=== PATIENT | female | born 1970 | race Two or more races ===

== ENCOUNTER 2020-01-16 05:19 | Emergency (ER) | payer OTHER ==
--- NOTE | 2020-01-16 06:15 | CR ---
Indication: Cough Technique: Chest 2 views Comparison: None Findings: Cardiovascular and mediastinum: Heart size and vasculature are normal in caliber and appearance. Lungs and pleural spaces: Ill-defined infiltrate is present in the right lower lobe. Remainder of the lungs and pleural spaces are clear. Bones and soft tissues: No significant findings. Impression: Right lower lobe pneumonia. Dictated by Prudencio Lester MD @ Jan 16 2020 6:12AM Signed by Dr. Prudencio Lester @ Jan 16 2020 6:14AM
[2020-01-16] MEDS ORDERED: Azithromycin 250 MG Tab PO ONE (06:25)
[2020-01-16] MEDS ORDERED: Ibuprofen 600 MG Tab PO ONE (06:25)
--- NOTE | 2020-01-16 06:27 | EDM.PDOC ---
ED HPI GENERAL MEDICAL PROBLEM - General Chief Complaint: Respiratory Problem Stated Complaint: COUGH, CONGESTION Time Seen by Provider: 01/16/20 05:32 - History of Present Illness INITIAL COMMENTS - FREE TEXT/NARRATIVE: HISTORY AND PHYSICAL: History of present illness: This is a 49-year-old female who presents ER today secondary to cough and congestion x1 week. Patient reports she presents the ER today secondary to identifying small flecks of blood in her sputum. Patient complains of tactile fevers at home, no shakes, chills, nausea, vomiting, diarrhea, dysuria, frequency, urgency. Patient does complain of mild sore throat. Patient denies any ear pain. Patient denies any abdominal discomfort. Patient has a chest pain or shortness of breath. Patient denies any history of hypertension, diabetes, liver, lung, kidney problems. Patient denies any chest or abdominal surgeries. Patient reports that she has been diagnosed with breast cancer and they did a lumpectomy. Patient has any tobacco alcohol or drugs. Patient has no known drug allergies. Patient has no known coronavirus exposures. Patient currently works from home. Review of systems: As per history of present illness and below otherwise all systems reviewed and negative. Past medical history: As per history of present illness and as reviewed below otherwise noncontributory. Surgical history: As per history of present illness and as reviewed below otherwise noncontributory. Social history: No reported history of drug or alcohol abuse. Family history: As per history of present illness and as reviewed below otherwise noncontributory. Physical exam: Pulse ox 96% on room air. Constitutional: Patient is oriented to person, place, and time. Appears well- developed and well-nourished. No distress. HEENT: Moist mucous membranes Head: Normocephalic and atraumatic Eyes: Right eye exhibits no discharge. Left eye exhibits no discharge. No scleral icterus Neck: Normal range of motion. No tracheal deviation present. Cardiovascular: Normal rate and regular rhythm. No murmurs gallops or rubs. Pulmonary: Effort normal, no respiratory distress. Clear without any wheezing rales or rhonchi. Abdominal: No distention Musculoskeletal: Normal range of motion Neurologic: Alert and oriented to person, place and time. Skin: [place], warm and dry. Psychiatric: Normal mood and affect. Behavior is normal. Judgment and thought content normal. Nursing note and vital signs have been reviewed Diagnostics: Chest Xray: Normal cardiac silhouette Right lower lobe infiltrate/pneumonia No PTX No evidence of acute bony fracture. As interpreted by ER MD: Jeet Cook: Zithromax 500 mg p.o. x1; 250 mg p.o. daily x4. Assessment and plan: This is a 49-year-old female who presents ER today secondary to cough and congestion times several days with identification of specks of blood in her sputum. Patient reports that her sputum has been thick white cloudy with flecks of blood. Patient's pulse ox is 96% on room air. Patient does not appear to be in any acute respiratory distress. Patient does not have any difficulty with ambulation or with speaking in full sentences. Patient likely has community-acquired pneumonia and will be started on Zithromax. Pulse ox repeated in the ED prior to discharge equals 96% on room air Patient has been instructed to follow-up with her primary care physician in 2 to 3 days. Patient reports that her doctor currently is in [place] and she will be unable to see a primary care physician. I have advised the patient to return to the ER for reevaluation if she is not feeling improved after 2 to 3 days of antibiotics. Patient was instructed to return to the ER if she starts having any deterioration in her symptoms including increasing shortness of breath, sputum production, dizziness, nausea, vomiting or any other new or concerning symptoms. Reassessment at the time of disposition demonstrates that the patient is in no acute distress. The patient has remained stable throughout the entire ED visit and is without objective evidence for acute process requiring urgent intervention or hospitalization. The patient is stable for discharge, counseling is provided as documented above, discussed symptomatic treatment and specific conditions for return. I have spoken with the patient/caregive and discussed todays findings, in addition to providing specific details for the plan of care. Questions are answered and there is agreement with the plan. Definitive disposition and diagnosis as appropriate pending reevaluation and review of above. - Related Data Allergies Allergy/AdvReac Type Severity Reaction Status Date / Time No Known Allergies Allergy Verified 01/16/20 05:31 Home Meds: Home Meds Azithromycin [Zithromax] 250 mg PO DAILY #4 tablet 01/16/20 [Rx] Ibuprofen 600 mg PO Q6HR PRN #30 tablet 01/16/20 [Rx] Levothyroxine 75 mcg PO ACBREAKFAST 01/16/20 [History] Past Medical History HEENT History: Reports: None Cardiovascular History: Reports: [place] Other Cardiovascular History: pt reports "mild heart attack" Respiratory History: Reports: None Gastrointestinal History: Reports: None Genitourinary History: Reports: None [employer] History: Reports: None Musculoskeletal History: Reports: None Neurological History: Reports: None Psychiatric History: Reports: None Endocrine/Metabolic History: Reports: Hypothyroidism Hematologic History: Reports: None Oncologic (Cancer) History: Reports: Breast Dermatologic History: Reports: None - Infectious Disease History Infectious Disease History: Reports: Chicken Pox - Past Surgical History Oncologic Surgical History: Reports: Lumpectomy Social & Family History - Family History Family Medical History: Noncontributory - Tobacco Use Smoking Status *Q: Never Smoker - Recreational Drug Use Recreational Drug Use: No ED ROS GENERAL - Review of Systems Review Of Systems: See Below ED EXAM, GENERAL - Physical Exam Exam: See Below Course - Vital Signs Last Recorded V/S: Last Vital Signs Temp 96.3 F L 01/16/20 06:33 Pulse 74 01/16/20 06:33 Resp 18 01/16/20 06:33 BP 104/51 L 01/16/20 06:33 Pulse Ox 95 01/16/20 06:33 - Orders/Labs/Meds Meds: Medications Discontinued Medications Generic Name Dose Route Start Last Admin Trade Name Deondreq PRN Reason Stop Dose Admin Azithromycin 500 mg 01/16/20 06:25 01/16/20 06:35 Zithromax PO 01/16/20 06:26 500 mg Q24H ONE Administration Ibuprofen 600 mg 01/16/20 06:25 01/16/20 06:35 Motrin PO 01/16/20 06:26 600 mg ONETIME ONE Administration Departure - Departure Time of Disposition: 06:35 Disposition: Home, Self-Care 01 Condition: Good Clinical Impression: Pneumonia Qualifiers: Laterality: right Lung location: lower lobe of lung - Discharge Information Prescriptions: Ibuprofen 600 mg PO Q6HR PRN #30 tablet PRN Reason: Pain Azithromycin [Zithromax] 250 mg PO DAILY #4 tablet Instructions: Community-Acquired Pneumonia, Adult Referrals: PCP,Not In Area [Primary Care Provider] - Forms: ED Department Discharge Additional Instructions: Your x-ray today reveals that you have a pneumonia in your right lower lobe of your lung. You will be started on antibiotic for this. You have been given Zithromax 500 mg in the ED and you will be given a prescription for Zithromax 250 mg daily for an additional 4 days. Since you do not have a physician here in [place], I recommend that you return to the ED if you are not having any significant improvement in your symptoms by Tuesday or Tuesday. You will continue to cough for several weeks even after the antibiotic course is completed since your lungs have to clear up all the bacteria that has settled into your lungs. Please return to the ER sooner if you start experiencing any increased difficulty breathing, dizziness, confusion or any other new or concerning symptoms. You may take ibuprofen to assist you with your pain. The following information is given to patients seen in the emergency department who are being discharged to home. This information is to outline your options for follow-up care. We provide all patients seen in our emergency department with a follow-up referral. The need for follow-up, as well as the timing and circumstances, are variable depending upon the specifics of your emergency department visit. If you don't have a primary care physician on staff, we will provide you with a referral. We always advise you to contact your personal physician following an emergency department visit to inform them of the circumstance of the visit and for follow-up with them and/or the need for any referrals to a consulting specialist. The emergency department will also refer you to a specialist when appropriate. This referral assures that you have the opportunity for follow-up care with a specialist. All of these measure are taken in an effort to provide you with optimal care, which includes your follow-up. Under all circumstances we always encourage you to contact your private hybenniecian who remains a resource for coordinating your care. When calling for follow-up care, please make the office aware that this follow-up is from your recent emergency room visit. If for any reason you are refused follow-up, please contact the [facility] Emergency Department at and asked to speak to the emergency department charge nurse. Sepsis Event Note (ED) - Evaluation Sepsis Screening Result: No Definite Risk - Focused Exam Vital Signs: Vital Signs Temp Pulse Resp BP Pulse Ox 01/16/20 06:33 96.3 F L 74 18 104/51 L 95 01/16/20 05:32 96.8 F L 88 20 115/72 92 L
== END 2020-01-16 06:49 | disposition home or self-care (01) ==
LOC: MW.ED 05:19
DX: J18.9 Pneumonia, unspecified organism (principal); I25.2 Old myocardial infarction
CPT/HCPCS: 71046; 99283; A9270

== ENCOUNTER 2020-01-19 16:36 | Inpatient (IN) | payer OTHER ==
[2020-01-19] MEDS ORDERED: Sodium Chloride 0.9% 1,000 ML IV ONE (16:50)
[2020-01-19] MEDS ORDERED: methylPREDNISolone Sodium Succinate 125 MG/2 ML SDV IVPUSH ONE (16:58)
--- NOTE | 2020-01-19 17:02 | EDM.PDOC ---
ED HPI GENERAL MEDICAL PROBLEM - General Chief Complaint: Respiratory Problem Stated Complaint: cough Time Seen by Provider: 01/19/20 16:43 Source of Information: Reports: Patient History Limitations: Reports: No Limitations - History of Present Illness INITIAL COMMENTS - FREE TEXT/NARRATIVE: HISTORY AND PHYSICAL: History of present illness: Patient is a 49-year-old female who presents to the emergency room with complaints of cough and shortness of breath. Patient was seen a few days prior for these symptoms and was diagnosed with pneumonia. She was started on azithromycin. States she is completing this medication and has not felt any improvement. She has had subjective fever and chills, has not checked her temperature at home. Mild generalized headache without any light or noise sensitivity. Patient denies any neck pain/stiffness, change in vision, syncope or near syncope. Denies any chest pain, back pain, shortness of breath, or hemoptysis. Denies any abdominal pain, nausea, vomiting, diarrhea, constipation or dysuria. Patient has been eating and drinking appropriately. Review of systems: As per history of present illness and below otherwise all systems reviewed and negative. Past medical history: As per history of present illness and as reviewed below otherwise noncontributory. Surgical history: As per history of present illness and as reviewed below otherwise noncontributory. Social history: See social history for further information Family history: As per history of present illness and as reviewed below otherwise noncontributory. Physical exam: General: Well developed and well nourished 49-year-old female. Alert and orientated x 3. Nontoxic in appearance and in no acute distress. Vital signs are stable and have been reviewed by me. Nursing notes were reviewed. HEENT: Atraumatic, normocephalic, pupils equal and reactive bilaterally, negative for conjunctival pallor or scleral icterus, mucous membranes moist, neck supple, nontender, trachea midline. No drooling or trismus noted. No meningeal signs. No hot potato voice noted. Lungs: Diminished lung sounds throughout, breath sounds equal bilaterally, chest nontender. Normal work of breathing, no accessory muscles used. Dry nonproductive cough noted. Heart: S1S2, regular rate and rhythm without overt murmur Abdomen: Soft, nondistended, nontender. Skin: Intact, warm, dry. No lesions or rashes noted. Hematologic: No petechiae or purpra. Mucosa appropriate color and normal nail bed color and refill. Extremities: Atraumatic, moves all extremities per self without difficulty or deficits. Neurovascular unremarkable. Neuro: Awake, alert, oriented. Cranial nerves II through XII unremarkable. Cerebellum unremarkable. Motor and sensory unremarkable throughout. Exam nonfo stephy. Psychiatric: Mood and affect are appropriate. Normal thought process. Answering questions appropriately. Notes: 2 view chest x-ray that was done on 01/16/2020 shows a right lower lobe pneumonia. She was started on a Z-Rahul. Upon arrival the patient is 87 to 88% on room air. She was bumped up to 4 L per nasal cannula and sating at 93%. Patient previously had a chest x-ray, although no lab work was done at that time. She is agreeable to a full work-up and likely an admission. I have spoken with the patient and discussed today's findings, in addition to providing specific details for plan of care. Reassessment demonstrates that the patient will require admission for further care and management. She is agreeable to plan of care. Dr. Sepulveda was made aware of this patient and agreeab le to admitting her for inpatient admission. Upon patient being transferred to the floor her CT scan came back and shows no evidence of PE. There are bilateral patchy lung infiltrates which are comp atible with pneumonia. Diagnostics: CBC, CMP, BC x2, Lactate, Coronavirus Therapeutics: IV fluid, Solu-Medrol Impression: COVID 19 Pneumonia Plan: Inpatient admission with telemetry Definitive disposition and diagnosis as appropriate pending reevaluation and review of above. - Related Data Allergies Allergy/AdvReac Type Severity Reaction Status Date / Time No Known Allergies Allergy Verified 01/19/20 16:48 Home Meds: Home Meds Azithromycin [Zithromax] 250 mg PO DAILY #4 tablet 01/16/20 [Rx] Ibuprofen 600 mg PO Q6HR PRN #30 tablet 01/16/20 [Rx] Levothyroxine 75 mcg PO ACBREAKFAST 01/16/20 [History] Past Medical History HEENT History: Reports: None Cardiovascular History: Reports: [place] Other Cardiovascular History: pt reports "mild heart attack" Respiratory History: Reports: None Gastrointestinal History: Reports: None Genitourinary History: Reports: None [employer] History: Reports: None Musculoskeletal History: Reports: None Neurological History: Reports: None Psychiatric History: Reports: None Endocrine/Metabolic History: Reports: Hypothyroidism Hematologic History: Reports: None Oncologic (Cancer) History: Reports: Breast Dermatologic History: Reports: None - Infectious Disease History Infectious Disease History: Reports: Chicken Pox - Past Surgical History Oncologic Surgical History: Reports: Lumpectomy Social & Family History - Family History Family Medical History: Noncontributory - Tobacco Use Smoking Status *Q: Never Smoker - Recreational Drug Use Recreational Drug Use: No ED ROS GENERAL - Review of Systems Review Of Systems: Comprehensive ROS is negative, except as noted in HPI. ED EXAM, GENERAL - Physical Exam Exam: See Below (See dictation) Course - Vital Signs Last Recorded V/S: Last Vital Signs Temp 96.5 F L 01/19/20 16:45 Pulse 68 01/19/20 18:59 Resp 16 01/19/20 18:59 BP 115/55 L 01/19/20 18:59 Pulse Ox 97 01/19/20 18:59 - Orders/Labs/Meds Orders: Active Orders 24 hr Category Date Time Status Admission Status [Patient Status] [ADT] Stat ADT 01/19/20 18:00 Active EKG Documentation Completion [RC] STAT Care 01/19/20 17:02 Active CULTURE BLOOD [BC] Stat Lab 01/19/20 17:23 Results CULTURE BLOOD [BC] Stat Lab 01/19/20 18:18 Received HCG QUALITATIVE,URINE [URCHEM] Stat Lab 01/19/20 17:02 Ordered UA RFX EHRIBERTO AND CULT IF INDIC [URIN] Stat Lab 01/19/20 17:02 Ordered Blood Culture x2 Reflex Set [OM.PC] Stat Oth 01/19/20 16:50 Ordered Labs: Laboratory Tests 01/19/20 01/19/20 01/19/20 Range/Units 17:00 17:00 17:00 WBC 6.44 (4.0-11.0) K/uL RBC 4.59 (4.30-5.90) M/uL Hgb 13.7 (12.0-16.0) g/dL Hct 41.0 (36.0-46.0) % MCV 89.3 (80.0-98.0) fL MCH 29.8 (27.0-32.0) pg MCHC 33.4 (31.0-37.0) g/dL RDW Std Deviation 44.0 (28.0-62.0) fl RDW Coeff of Aubrey 14 (11.0-15.0) % Plt Count 274 (150-400) K/uL MPV 10.30 (7.40-12.00) fL Add Manual Diff YES Neutrophils % (Manual) 50 (48.0-80.0) % Band Neutrophils % 7 % Lymphocytes % (Manual) 32 (16.0-40.0) % Monocytes % (Manual) 7 (0.0-15.0) % Eosinophils % (Manual) 3 (0.0-7.0) % Basophils % (Manual) 1 (0.0-1.5) % Absolute Seg Neuts 3.2 (1.4-5.7) Band Neutrophils # 0.5 Lymphocytes # (Manual) 2.1 (0.6-2.4) Monocytes # (Manual) 0.5 (0.0-0.8) Eosinophils # (Manual) 0.2 (0.0-0.7) Basophils # (Manual) 0.1 (0.0-0.1) D-Dimer, Quantitative (0.0-0.50) mg/L FEU Lactate 1.7 (0.20-2.00) mmol/L Sodium 140 (136-145) mmol/L Potassium 3.5 (3.5-5.1) mmol/L Chloride 103 (98-107) mmol/L Carbon Dioxide 25.6 (21.0-32.0) mmol/L BUN 7 (7.0-18.0) mg/dL Creatinine 0.8 (0.6-1.0) mg/dL Est Cr Clr Drug Dosing 84.54 mL/min Estimated GFR (MDRD) > 60.0 ml/min Glucose 95 (74-106) mg/dL Calcium 7.9 L (8.5-10.1) mg/dL Total Bilirubin 0.6 (0.2-1.0) mg/dL AST 451 H (15-37) IU/L ALT 231 H (14-63) IU/L Alkaline Phosphatase 145 H (46-116) U/L Troponin I (0.000-0.056) ng/mL Total Protein 7.9 (6.4-8.2) g/dL Albumin 3.6 (3.4-5.0) g/dL Globulin 4.3 H (2.6-4.0) g/dL Albumin/Globulin Ratio 0.8 L (0.9-1.6) COVID-19 ([facility]) (NEGATIVE) 01/19/20 01/19/20 01/19/20 Range/Units 17:00 17:00 17:10 WBC (4.0-11.0) K/uL RBC (4.30-5.90) M/uL Hgb (12.0-16.0) g/dL Hct (36.0-46.0) % MCV (80.0-98.0) fL MCH (27.0-32.0) pg MCHC (31.0-37.0) g/dL RDW Std Deviation (28.0-62.0) fl RDW Coeff of Aubrey (11.0-15.0) % Plt Count (150-400) K/uL MPV (7.40-12.00) fL Add Manual Diff Neutrophils % (Manual) (48.0-80.0) % Band Neutrophils % % Lymphocytes % (Manual) (16.0-40.0) % Monocytes % (Manual) (0.0-15.0) % Eosinophils % (Manual) (0.0-7.0) % Basophils % (Manual) (0.0-1.5) % Absolute Seg Neuts (1.4-5.7) Band Neutrophils # Lymphocytes # (Manual) (0.6-2.4) Monocytes # (Manual) (0.0-0.8) Eosinophils # (Manual) (0.0-0.7) Basophils # (Manual) (0.0-0.1) D-Dimer, Quantitative 0.88 H (0.0-0.50) mg/L FEU Lactate (0.20-2.00) mmol/L Sodium (136-145) mmol/L Potassium (3.5-5.1) mmol/L Chloride (98-107) mmol/L Carbon Dioxide (21.0-32.0) mmol/L BUN (7.0-18.0) mg/dL Creatinine (0.6-1.0) mg/dL Est Cr Clr Drug Dosing mL/min Estimated GFR (MDRD) ml/min Glucose (74-106) mg/dL Calcium (8.5-10.1) mg/dL Total Bilirubin (0.2-1.0) mg/dL AST (15-37) IU/L ALT (14-63) IU/L Alkaline Phosphatase (46-116) U/L Troponin I < 0.050 (0.000-0.056) ng/mL Total Protein (6.4-8.2) g/dL Albumin (3.4-5.0) g/dL Globulin (2.6-4.0) g/dL Albumin/Globulin Ratio (0.9-1.6) COVID-19 ([facility]) POSITIVE H (NEGATIVE) Meds: Medications Discontinued Medications Generic Name Dose Route Start Last Admin Trade Name Freq PRN Reason Stop Dose Admin Sodium Chloride 1,000 mls @ 999 mls/hr 01/19/20 16:50 01/19/20 17:07 Normal Saline IV 01/19/20 17:50 999 mls/hr STAT ONE Administration Iopamidol 75 ml 01/19/20 18:58 01/19/20 18:59 Isovue-370 (76%) IVPUSH 01/19/20 18:59 75 ml ONETIME ONE Administration Methylprednisolone Sodium Succinate 125 mg 01/19/20 16:58 01/19/20 17:12 Solu-Medrol IVPUSH 01/19/20 16:59 125 mg ONETIME ONE Administration Departure - Departure Time of Disposition: 17:59 Disposition: Admitted As Inpatient 68 Clinical Impression: COVID-19 Pneumonia Qualifiers: Pneumonia type: due to unspecified organism Laterality: bilateral Lung location: lower lobe of lung Qualified Code(s): J18.9 - Pneumonia, unspecified organism - Discharge Information Referrals: PCP,None [Primary Care Provider] - Forms: ED Department Discharge Sepsis Event Note (ED) - Evaluation Sepsis Screening Result: No Definite Risk - Focused Exam Vital Signs: Vital Signs Temp Pulse Resp BP Pulse Ox 01/19/20 18:59 68 16 115/55 L 97 01/19/20 16:45 96.5 F L 74 24 H 132/44 L 90 L - My Orders Last 24 Hours: My Active Orders 01/19/20 16:50 Blood Culture x2 Reflex Set [OM.PC] Stat 01/19/20 17:02 EKG Documentation Completion [RC] STAT HCG QUALITATIVE,URINE [URCHEM] Stat UA RFX HERIBERTO AND CULT IF INDIC [URIN] Stat 01/19/20 17:23 CULTURE BLOOD [BC] Stat 01/19/20 18:00 Admission Status [Patient Status] [ADT] Stat 01/19/20 18:18 CULTURE BLOOD [BC] Stat - Assessment/Plan Last 24 Hours: My Active Orders 01/19/20 16:50 Blood Culture x2 Reflex Set [OM.PC] Stat 01/19/20 17:02 EKG Documentation Completion [RC] STAT HCG QUALITATIVE,URINE [URCHEM] Stat UA RFX HERIBERTO AND CULT IF INDIC [URIN] Stat 01/19/20 17:23 CULTURE BLOOD [BC] Stat 01/19/20 18:00 Admission Status [Patient Status] [ADT] Stat 01/19/20 18:18 CULTURE BLOOD [BC] Stat
[2020-01-19 17:41] LABS: BLOOD UREA NITROGEN,BUN 7 mg/dL (7.0-18.0); CARBON DIOXIDE,CO2 25.6 mmol/L (21.0-32.0); CHLORIDE,CL 103 mmol/L (98-107); GLUCOSE RANDOM 95 mg/dL (74-106); POTASSIUM,K 3.5 mmol/L (3.5-5.1); SODIUM,NA 140 mmol/L (136-145)
[2020-01-19] MEDS ORDERED: Iopamidol 755 Mg/ML 100 ML Bottle IVPUSH ONE (18:58)
--- NOTE | 2020-01-19 19:09 | CT ---
HISTORY: COVID-19. TECHNIQUE: Intravenous contrast enhanced CT of the chest. 75 mL of Isovue-370 intravenous contrast administered. COMPARISON: 01/16/2020. FINDINGS: No thoracic aortic aneurysm or dissection. Study was not performed as a pulmonary embolism protocol CT. No large/central pulmonary embolism. There are an increased number of mediastinal and hilar lymph nodes which may be reactive. There are bilateral patchy lung infiltrates compatible with pneumonia. There is no pneumothorax. No significant pleural effusion. - Fatty infiltration of the liver. Prior cholecystectomy. - Degenerative changes of the spine. No acute fractures. IMPRESSION: 1. Patchy bilateral lung infiltrates compatible with pneumonia. 2. Increased number of small mediastinal and hilar lymph nodes may be reactive. 3. Fatty infiltration of the liver. 4. Prior cholecystectomy. Dictated by Frank Arzate MD @ 01/19/2020 7:06:55 PM Please note that all CT scans at this facility use dose modulation, iterative reconstruction, and/or weight-based dosing when appropriate to reduce radiation dose to as low as reasonably achievable. Dictated by: Frank Arzate MD @ 01/19/2020 19:07:00 (Electronically Signed)
[2020-01-19] MEDS ORDERED: Levofloxacin/Dextrose 5%-Water 750 MG in Premix Bag 1 BAG IV ONE (19:16)
[2020-01-19] MEDS ORDERED: Levofloxacin/Dextrose 5%-Water 150 ML IV ONE (19:27)
--- NOTE | 2020-01-19 19:31 | PCM.HP.2 ---
H&P History of Present Illness - General Date of Service: 01/19/20 Admit Problem/Dx: Admission Diagnosis/Problem Admission Diagnosis/Problem Respiratory illness with fever Source of Information: Patient History Limitations: Reports: No Limitations - History of Present Illness Initial Comments - Free Text/Narative: Patient is a 49-year-old female with a significant past medical history of hypothyroidism presenting today to the ED with worsening cough and shortness of breath at rest. Patient was initially seen in the ED and was diagnosed with right lower lobe pneumonia and was sent home on azithromycin (01-16-2020). Patient however was complaining of increasing shortness of breath, increasing sputum with flecks of blood in it, sore throat, subjective fever and chills and malaise. Patient otherwise denies any chest pain, abdominal pain, diarrhea, constipation, dysuria. Patient cannot think of any overt sick contacts or any known sources of exposure. ED course: Positive COVID Elevated d-dimer Chest CT: Non-PE protocol: No obvious PE however bilateral lower lobe pat chiness/infiltrates appreciated compatible with pneumonia No effusion appreciated Troponin x1- Oxygen saturation down to 8788% on room air; started on 3.5 L nasal cannula with improvement of saturations greater than 92%. Received 1 L of fluid, Solu-Medrol and dose of Levaquin. Bedside: Mentions breathing has improved with supplemental oxygen; but does feel tired. Denies any chest pain, headache, diarrhea, constipation. - Related Data Allergies/Adverse Reactions: Allergies Allergy/AdvReac Type Severity Reaction Status Date / Time No Known Allergies Allergy Verified 01/19/20 16:48 Home Medications: Home Meds Azithromycin [Zithromax] 250 mg PO DAILY #4 tablet 01/16/20 [Rx] Ibuprofen 600 mg PO Q6HR PRN #30 tablet 01/16/20 [Rx] Levothyroxine 75 mcg PO ACBREAKFAST 01/16/20 [History] Past Medical History HEENT History: Reports: None Cardiovascular History: Reports: [place] Other Cardiovascular History: pt reports "mild heart attack" Respiratory History: Reports: None Gastrointestinal History: Reports: None Genitourinary History: Reports: None [employer] History: Reports: None Musculoskeletal History: Reports: None Neurological History: Reports: None Psychiatric History: Reports: None Endocrine/Metabolic History: Reports: Hypothyroidism Hematologic History: Reports: None Oncologic (Cancer) History: Reports: Breast Dermatologic History: Reports: None - Infectious Disease History Infectious Disease History: Reports: Chicken Pox - Past Surgical History Oncologic Surgical History: Reports: Lumpectomy Social & Family History - Family History Family Medical History: Noncontributory - Tobacco Use Smoking Status *Q: Never Smoker - Recreational Drug Use Recreational Drug Use: No H&P Review of Systems - Review of Systems: Review Of Systems: See Below General: Reports: Fever, Decreased Appetite. Denies: Chills, Fatigue HEENT: Reports: Sore Throat. Denies: Rhinitis, Post Nasal Drip, Sinus Conge stion Pulmonary: Reports: Shortness of Breath, Wheezing, Cough, Sputum, Hemoptysis. Denies: Pleuritic Chest Pain Cardiovascular: Reports: No Symptoms Gastrointestinal: Reports: No Symptoms. Denies: Abdominal Pain, Diarrhea, Decreased Appetite, Nausea Genitourinary: Reports: No Symptoms Musculoskeletal: Reports: No Symptoms Skin: Reports: No Symptoms Psychiatric: Reports: No Symptoms Neurological: Reports: No Symptoms Exam - Exam Exam: See Below - Vital Signs Vital Signs: Last Vital Signs Temp 96.5 F L 01/19/20 16:45 Pulse 68 01/19/20 18:59 Resp 16 01/19/20 18:59 BP 115/55 L 01/19/20 18:59 Pulse Ox 97 01/19/20 18:59 Weight: 104.326 kg - Exam Quality Assessment: Supplemental Oxygen General: Alert, Oriented, Cooperative HEENT: EOMI, Mucosa Moist & [place] Neck: Supple, Trachea Midline Lungs: Other (Mildly tachypneic, moving air well, wheeze appreciated with deep cough. some mild diominshment at bases; left > right , otherwise no rales and or rhonchi appreciated ) Cardiovascular: Regular Rate, Regular Rhythm GI/Abdominal Exam: Soft, Non-Tender Back Exam: Normal Inspection Extremities: Normal Inspection, Normal Range of Motion, Non-Tender, No Pedal Edema Skin: Warm, Dry, Intact Neurological: Cranial Nerves Intact Neuro Extensive - Mental Status: Alert, Oriented x3, Normal Mood/Affect Neuro Extensive - Motor, Sensory, Reflexes: CN II-XII Intact, Normal Gait, Normal Reflexes - Patient Data Lab Results Last 24 hrs: Laboratory Results - last 24 hr 01/19/20 01/19/20 01/19/20 Range/Units 17:00 17:00 17:00 WBC 6.44 (4.0-11.0) K/uL RBC 4.59 (4.30-5.90) M/uL Hgb 13.7 (12.0-16.0) g/dL Hct 41.0 (36.0-46.0) % MCV 89.3 (80.0-98.0) fL MCH 29.8 (27.0-32.0) pg MCHC 33.4 (31.0-37.0) g/dL RDW Std Deviation 44.0 (28.0-62.0) fl RDW Coeff of Aubrey 14 (11.0-15.0) % Plt Count 274 (150-400) K/uL MPV 10.30 (7.40-12.00) fL Add Manual Diff YES Neutrophils % (Manual) 50 (48.0-80.0) % Band Neutrophils % 7 % Lymphocytes % (Manual) 32 (16.0-40.0) % Monocytes % (Manual) 7 (0.0-15.0) % Eosinophils % (Manual) 3 (0.0-7.0) % Basophils % (Manual) 1 (0.0-1.5) % Absolute Seg Neuts 3.2 (1.4-5.7) Band Neutrophils # 0.5 Lymphocytes # (Manual) 2.1 (0.6-2.4) Monocytes # (Manual) 0.5 (0.0-0.8) Eosinophils # (Manual) 0.2 (0.0-0.7) Basophils # (Manual) 0.1 (0.0-0.1) D-Dimer, Quantitative (0.0-0.50) mg/L FEU Lactate 1.7 (0.20-2.00) mmol/L Sodium 140 (136-145) mmol/L Potassium 3.5 (3.5-5.1) mmol/L Chloride 103 (98-107) mmol/L Carbon Dioxide 25.6 (21.0-32.0) mmol/L BUN 7 (7.0-18.0) mg/dL Creatinine 0.8 (0.6-1.0) mg/dL Est Cr Clr Drug Dosing 84.54 mL/min Estimated GFR (MDRD) > 60.0 ml/min Glucose 95 (74-106) mg/dL Calcium 7.9 L (8.5-10.1) mg/dL Total Bilirubin 0.6 (0.2-1.0) mg/dL AST 451 H (15-37) IU/L ALT 231 H (14-63) IU/L Alkaline Phosphatase 145 H (46-116) U/L Troponin I (0.000-0.056) ng/mL Total Protein 7.9 (6.4-8.2) g/dL Albumin 3.6 (3.4-5.0) g/dL Globulin 4.3 H (2.6-4.0) g/dL Albumin/Globulin Ratio 0.8 L (0.9-1.6) COVID-19 ([facility]) (NEGATIVE) 01/19/20 01/19/20 01/19/20 Range/Units 17:00 17:00 17:10 WBC (4.0-11.0) K/uL RBC (4.30-5.90) M/uL Hgb (12.0-16.0) g/dL Hct (36.0-46.0) % MCV (80.0-98.0) fL MCH (27.0-32.0) pg MCHC (31.0-37.0) g/dL RDW Std Deviation (28.0-62.0) fl RDW Coeff of Aubrey (11.0-15.0) % Plt Count (150-400) K/uL MPV (7.40-12.00) fL Add Manual Diff Neutrophils % (Manual) (48.0-80.0) % Band Neutrophils % % Lymphocytes % (Manual) (16.0-40.0) % Monocytes % (Manual) (0.0-15.0) % Eosinophils % (Manual) (0.0-7.0) % Basophils % (Manual) (0.0-1.5) % Absolute Seg Neuts (1.4-5.7) Band Neutrophils # Lymphocytes # (Manual) (0.6-2.4) Monocytes # (Manual) (0.0-0.8) Eosinophils # (Manual) (0.0-0.7) Basophils # (Manual) (0.0-0.1) D-Dimer, Quantitative 0.88 H (0.0-0.50) mg/L FEU Lactate (0.20-2.00) mmol/L Sodium (136-145) mmol/L Potassium (3.5-5.1) mmol/L Chloride (98-107) mmol/L Carbon Dioxide (21.0-32.0) mmol/L BUN (7.0-18.0) mg/dL Creatinine (0.6-1.0) mg/dL Est Cr Clr Drug Dosing mL/min Estimated GFR (MDRD) ml/min Glucose (74-106) mg/dL Calcium (8.5-10.1) mg/dL Total Bilirubin (0.2-1.0) mg/dL AST (15-37) IU/L ALT (14-63) IU/L Alkaline Phosphatase (46-116) U/L Troponin I < 0.050 (0.000-0.056) ng/mL Total Protein (6.4-8.2) g/dL Albumin (3.4-5.0) g/dL Globulin (2.6-4.0) g/dL Albumin/Globulin Ratio (0.9-1.6) COVID-19 ([facility]) POSITIVE H (NEGATIVE) Result Diagrams: 01/19/20 17:00 01/19/20 17:00 [place] Results Last 24 hrs: Microbiology 01/19/20 17:23 Anaerobic Blood Culture - Final Blood - Venous Sepsis Event Note - Evaluation Sepsis Screening Result: No Definite Risk - Focused Exam Vital Signs: Vital Signs Temp Pulse Resp BP Pulse Ox 01/19/20 18:59 68 16 115/55 L 97 01/19/20 16:45 96.5 F L 74 24 H 132/44 L 90 L Problem List Initiated/Reviewed/Updated: Yes Orders Last 24hrs: Active Orders 24 hr Category Date Time Status Admission Status [Patient Status] [ADT] Stat ADT 01/19/20 18:00 Active EKG Documentation Completion [RC] STAT Care 01/19/20 17:02 Active CULTURE BLOOD [BC] Stat Lab 01/19/20 17:23 Results CULTURE BLOOD [BC] Stat Lab 01/19/20 18:18 Received HCG QUALITATIVE,URINE [URCHEM] Stat Lab 01/19/20 17:02 Ordered UA RFX AM[place]OR AND CULT IF INDIC [URIN] Stat Lab 01/19/20 17:02 Ordered Levofloxacin/Dextrose 5%-Water [Levaquin in D5W 750 MG/ Med 01/19/20 19:16 Active 150 ML] 750 mg Premix Bag 1 bag IV ONETIME Blood Culture x2 Reflex Set [OM.PC] Stat Oth 01/19/20 16:50 Ordered Medication Orders Levofloxacin/Dextrose 750 mg/ (Premix) 150 mls @ 100 mls/hr IV ONETIME ONE Stop: 01/19/20 20:45 Last Admin: 01/19/20 19:29 Dose: 100 mls/hr Documented by: FINESSE Assessment/Plan Comment:: Assessment 1. Acute hypoxic respiratory failure in setting of COVID 2. Elevated d-dimer in the setting of above 3. B/l lower lobe CAP 4. Transaminitis with elevated alk phos status post cholecystectomy 5. Past medical history; hypothyroidism Plan Admit to inpatient. Full code. I's and O's per routine. Vitals per routine. DVT prophylaxis: Lovenox 40 daily GI prophylaxis: Pantoprazole 40 daily Telemetry 1. Respiratory failure; maintain sats greater than 92%; discussed risks and benefits of Remdesevir pt understood and agreed. Remdesevir 200 loading dose given ALT <5 times upper limit; will recheck Liver function in AM and determine continuation. Received 125 methylprednisone in ED Continue 6 mg dexamethasone daily starting tomorrow. Combivent q 4hrs +PRN Accapella + IS Encourage proning +can start CPT if cough worsens Benzonatate PRN cough Tylenol PRN Bilateral lower lobe pneumonia: Levaquin [address] chest (non-PE protocol): did not yield any obvious PE, infiltrates noted; continue Lovenox and Levaquin Transaminitis : possibly due to COVID, will order Hepatitis panel. Continue to monitor for Remdesevir usage Hypothyroidism: Continue levothyroxine
[2020-01-19] MEDS ORDERED: REMDESIVIR 200 MG in Sodium Chloride 0.9% 250 ML IV ONE (19:32)
[2020-01-19] MEDS ORDERED: Acetaminophen 500 MG Tab PO PRN (19:37)
[2020-01-19] MEDS ORDERED: Enoxaparin 40 MG/0.4 ML Syringe SUBCUT SCH (19:45)
[2020-01-19] MEDS ORDERED: Melatonin 3 MG Tab PO PRN (19:57)
[2020-01-19] MEDS: Benzonatate 100 MG Cap PO PRN (20:38)
[2020-01-19] MEDS: Albuterol/Ipratropium 4 GM Inhalation Spray INH SCH ×2 (20:39→23:13)
[2020-01-20] MEDS: Albuterol/Ipratropium 4 GM Inhalation Spray INH SCH ×4 (03:58→21:08)
[2020-01-20] MEDS: Levothyroxine 75 MCG Tab PO SCH (06:38)
[2020-01-20] MEDS: Pantoprazole 40 MG Tab.CR PO SCH (06:38)
[2020-01-20 07:16] LABS: BLOOD UREA NITROGEN,BUN 7 mg/dL (7.0-18.0); CARBON DIOXIDE,CO2 24.4 mmol/L (21.0-32.0); CHLORIDE,CL 105 mmol/L (98-107); GLUCOSE RANDOM 137 mg/dL (74-106); POTASSIUM,K 3.7 mmol/L (3.5-5.1); SODIUM,NA 140 mmol/L (136-145)
[2020-01-20] MEDS: Dexamethasone 4 MG Tab PO SCH (09:06)
[2020-01-20] MEDS: Enoxaparin 40 MG/0.4 ML Syringe SUBCUT SCH ×2 (10:20→23:40)
--- NOTE | 2020-01-20 12:33 | PCM.PN ---
- General Info Date of Service: 01/20/20 - Review of Systems Systems Review Comment:: feeling better today, reports cough with clear sputum, shortness of breath is improving. - Patient Data Vitals - Most Recent: Last Vital Signs Temp 36.6 C 01/20/20 11:57 Pulse 78 01/20/20 11:57 Resp 18 01/20/20 11:57 BP 111/47 L 01/20/20 11:57 Pulse Ox 89 L 01/20/20 11:57 Weight - Most Recent: 103.873 kg I&O - Last 24 Hours: Intake & Output 01/19/20 01/20/20 01/20/20 22:59 06:59 14:59 Intake Total 800 Output Total 600 Balance 200 Lab Results Last 24 Hours: Laboratory Results - last 24 hr 01/19/20 01/19/20 01/19/20 Range/Units 17:00 17:00 17:00 WBC 6.44 (4.0-11.0) K/uL RBC 4.59 (4.30-5.90) M/uL Hgb 13.7 (12.0-16.0) g/dL Hct 41.0 (36.0-46.0) % MCV 89.3 (80.0-98.0) fL MCH 29.8 (27.0-32.0) pg MCHC 33.4 (31.0-37.0) g/dL RDW Std Deviation 44.0 (28.0-62.0) fl RDW Coeff of Aubrey 14 (11.0-15.0) % Plt Count 274 (150-400) K/uL MPV 10.30 (7.40-12.00) fL Add Manual Diff YES Neutrophils % (Manual) 50 (48.0-80.0) % Band Neutrophils % 7 % Lymphocytes % (Manual) 32 (16.0-40.0) % Monocytes % (Manual) 7 (0.0-15.0) % Eosinophils % (Manual) 3 (0.0-7.0) % Basophils % (Manual) 1 (0.0-1.5) % Absolute Seg Neuts 3.2 (1.4-5.7) Band Neutrophils # 0.5 Lymphocytes # (Manual) 2.1 (0.6-2.4) Monocytes # (Manual) 0.5 (0.0-0.8) Eosinophils # (Manual) 0.2 (0.0-0.7) Basophils # (Manual) 0.1 (0.0-0.1) D-Dimer, Quantitative (0.0-0.50) mg/L FEU Lactate 1.7 (0.20-2.00) mmol/L Sodium 140 (136-145) mmol/L Potassium 3.5 (3.5-5.1) mmol/L Chloride 103 (98-107) mmol/L Carbon Dioxide 25.6 (21.0-32.0) mmol/L BUN 7 (7.0-18.0) mg/dL Creatinine 0.8 (0.6-1.0) mg/dL Est Cr Clr Drug Dosing 84.54 mL/min Estimated GFR (MDRD) > 60.0 ml/min Glucose 95 (74-106) mg/dL Calcium 7.9 L (8.5-10.1) mg/dL Total Bilirubin 0.6 (0.2-1.0) mg/dL AST 451 H (15-37) IU/L ALT 231 H (14-63) IU/L Alkaline Phosphatase 145 H (46-116) U/L Troponin I (0.000-0.056) ng/mL Total Protein 7.9 (6.4-8.2) g/dL Albumin 3.6 (3.4-5.0) g/dL Globulin 4.3 H (2.6-4.0) g/dL Albumin/Globulin Ratio 0.8 L (0.9-1.6) Urine Color Urine Appearance Urine pH (5.0-8.0) Ur Specific [place] (1.001-1.035) Urine Protein (NEGATIVE) mg/dL Urine Glucose (UA) (NEGATIVE) mg/dL Urine Ketones (NEGATIVE) mg/dL Urine Occult Blood (NEGATIVE) Urine Nitrite (NEGATIVE) Urine Bilirubin (NEGATIVE) Urine Urobilinogen (<2.0) EU/dL Ur Leukocyte Esterase (NEGATIVE) Urine RBC (0-2/HPF) Urine WBC (0-5/HPF) Ur Epithelial Cells (NONE-FEW) Urine Bacteria (NEGATIVE) Urine HCG, Qual (NEGATIVE) COVID-19 ([facility]) (NEGATIVE) 01/19/20 01/19/20 01/19/20 Range/Units 17:00 17:00 17:10 WBC (4.0-11.0) K/uL RBC (4.30-5.90) M/uL Hgb (12.0-16.0) g/dL Hct (36.0-46.0) % MCV (80.0-98.0) fL MCH (27.0-32.0) pg MCHC (31.0-37.0) g/dL RDW Std Deviation (28.0-62.0) fl RDW Coeff of Aubrey (11.0-15.0) % Plt Count (150-400) K/uL MPV (7.40-12.00) fL Add Manual Diff Neutrophils % (Manual) (48.0-80.0) % Band Neutrophils % % Lymphocytes % (Manual) (16.0-40.0) % Monocytes % (Manual) (0.0-15.0) % Eosinophils % (Manual) (0.0-7.0) % Basophils % (Manual) (0.0-1.5) % Absolute Seg Neuts (1.4-5.7) Band Neutrophils # Lymphocytes # (Manual) (0.6-2.4) Monocytes # (Manual) (0.0-0.8) Eosinophils # (Manual) (0.0-0.7) Basophils # (Manual) (0.0-0.1) D-Dimer, Quantitative 0.88 H (0.0-0.50) mg/L FEU Lactate (0.20-2.00) mmol/L Sodium (136-145) mmol/L Potassium (3.5-5.1) mmol/L Chloride (98-107) mmol/L Carbon Dioxide (21.0-32.0) mmol/L BUN (7.0-18.0) mg/dL Creatinine (0.6-1.0) mg/dL Est Cr Clr Drug Dosing mL/min Estimated GFR (MDRD) ml/min Glucose (74-106) mg/dL Calcium (8.5-10.1) mg/dL Total Bilirubin (0.2-1.0) mg/dL AST (15-37) IU/L ALT (14-63) IU/L Alkaline Phosphatase (46-116) U/L Troponin I < 0.050 (0.000-0.056) ng/mL Total Protein (6.4-8.2) g/dL Albumin (3.4-5.0) g/dL Globulin (2.6-4.0) g/dL Albumin/Globulin Ratio (0.9-1.6) Urine Color Urine Appearance Urine pH (5.0-8.0) Ur Specific [place] (1.001-1.035) Urine Protein (NEGATIVE) mg/dL Urine Glucose (UA) (NEGATIVE) mg/dL Urine Ketones (NEGATIVE) mg/dL Urine Occult Blood (NEGATIVE) Urine Nitrite (NEGATIVE) Urine Bilirubin (NEGATIVE) Urine Urobilinogen (<2.0) EU/dL Ur Leukocyte Esterase (NEGATIVE) Urine RBC (0-2/HPF) Urine WBC (0-5/HPF) Ur Epithelial Cells (NONE-FEW) Urine Bacteria (NEGATIVE) Urine HCG, Qual (NEGATIVE) COVID-19 ([facility]) POSITIVE H (NEGATIVE) 01/19/20 01/19/20 01/20/20 Range/Units 22:00 22:00 06:10 WBC 5.09 (4.0-11.0) K/uL RBC 4.24 L (4.30-5.90) M/uL Hgb 12.7 (12.0-16.0) g/dL Hct 37.9 (36.0-46.0) % MCV 89.4 (80.0-98.0) fL MCH 30.0 (27.0-32.0) pg MCHC 33.5 (31.0-37.0) g/dL RDW Std Deviation 43.4 (28.0-62.0) fl RDW Coeff of Aubrey 14 (11.0-15.0) % Plt Count 296 (150-400) K/uL MPV 10.50 (7.40-12.00) fL Add Manual Diff YES Neutrophils % (Manual) 41 L (48.0-80.0) % Band Neutrophils % 24 % Lymphocytes % (Manual) 32 (16.0-40.0) % Monocytes % (Manual) 3 (0.0-15.0) % Eosinophils % (Manual) (0.0-7.0) % Basophils % (Manual) (0.0-1.5) % Absolute Seg Neuts 2.1 (1.4-5.7) Band Neutrophils # 1.2 Lymphocytes # (Manual) 1.6 (0.6-2.4) Monocytes # (Manual) 0.2 (0.0-0.8) Eosinophils # (Manual) (0.0-0.7) Basophils # (Manual) (0.0-0.1) D-Dimer, Quantitative (0.0-0.50) mg/L FEU Lactate (0.20-2.00) mmol/L Sodium (136-145) mmol/L Potassium (3.5-5.1) mmol/L Chloride (98-107) mmol/L Carbon Dioxide (21.0-32.0) mmol/L BUN (7.0-18.0) mg/dL Creatinine (0.6-1.0) mg/dL Est Cr Clr Drug Dosing mL/min Estimated GFR (MDRD) ml/min Glucose (74-106) mg/dL Calcium (8.5-10.1) mg/dL Total Bilirubin (0.2-1.0) mg/dL AST (15-37) IU/L ALT (14-63) IU/L Alkaline Phosphatase (46-116) U/L Troponin I (0.000-0.056) ng/mL Total Protein (6.4-8.2) g/dL Albumin (3.4-5.0) g/dL Globulin (2.6-4.0) g/dL Albumin/Globulin Ratio (0.9-1.6) Urine Color YELLOW Urine Appearance CLEAR Urine pH 6.0 (5.0-8.0) Ur Specific [place] <= 1.005 (1.001-1.035) Urine Protein NEGATIVE (NEGATIVE) mg/dL Urine Glucose (UA) NEGATIVE (NEGATIVE) mg/dL Urine Ketones 15 H (NEGATIVE) mg/dL Urine Occult Blood MODERATE H (NEGATIVE) Urine Nitrite NEGATIVE (NEGATIVE) Urine Bilirubin NEGATIVE (NEGATIVE) Urine Urobilinogen 0.2 (<2.0) EU/dL Ur Leukocyte Esterase NEGATIVE (NEGATIVE) Urine RBC 3-6 (0-2/HPF) Urine WBC 0-1 (0-5/HPF) Ur Epithelial Cells RARE (NONE-FEW) Urine Bacteria RARE (NEGATIVE) Urine HCG, Qual NEGATIVE (NEGATIVE) COVID-19 ([facility]) (NEGATIVE) 01/20/20 Range/Units 06:10 WBC (4.0-11.0) K/uL RBC (4.30-5.90) M/uL Hgb (12.0-16.0) g/dL Hct (36.0-46.0) % MCV (80.0-98.0) fL MCH (27.0-32.0) pg MCHC (31.0-37.0) g/dL RDW Std Deviation (28.0-62.0) fl RDW Coeff of Aubrey (11.0-15.0) % Plt Count (150-400) K/uL MPV (7.40-12.00) fL Add Manual Diff Neutrophils % (Manual) (48.0-80.0) % Band Neutrophils % % Lymphocytes % (Manual) (16.0-40.0) % Monocytes % (Manual) (0.0-15.0) % Eosinophils % (Manual) (0.0-7.0) % Basophils % (Manual) (0.0-1.5) % Absolute Seg Neuts (1.4-5.7) Band Neutrophils # Lymphocytes # (Manual) (0.6-2.4) Monocytes # (Manual) (0.0-0.8) Eosinophils # (Manual) (0.0-0.7) Basophils # (Manual) (0.0-0.1) D-Dimer, Quantitative (0.0-0.50) mg/L FEU Lactate (0.20-2.00) mmol/L Sodium 140 (136-145) mmol/L Potassium 3.7 (3.5-5.1) mmol/L Chloride 105 (98-107) mmol/L Carbon Dioxide 24.4 (21.0-32.0) mmol/L BUN 7 (7.0-18.0) mg/dL Creatinine 0.6 (0.6-1.0) mg/dL Est Cr Clr Drug Dosing 112.72 mL/min Estimated GFR (MDRD) > 60.0 ml/min Glucose 137 H (74-106) mg/dL Calcium 7.4 L (8.5-10.1) mg/dL Total Bilirubin 0.4 (0.2-1.0) mg/dL AST 386 H (15-37) IU/L ALT 218 H (14-63) IU/L Alkaline Phosphatase 128 H (46-116) U/L Troponin I (0.000-0.056) ng/mL Total Protein 7.2 (6.4-8.2) g/dL Albumin 3.1 L (3.4-5.0) g/dL Globulin 4.1 H (2.6-4.0) g/dL Albumin/Globulin Ratio 0.8 L (0.9-1.6) Urine Color Urine Appearance Urine pH (5.0-8.0) Ur Specific [place] (1.001-1.035) Urine Protein (NEGATIVE) mg/dL Urine Glucose (UA) (NEGATIVE) mg/dL Urine Ketones (NEGATIVE) mg/dL Urine Occult Blood (NEGATIVE) Urine Nitrite (NEGATIVE) Urine Bilirubin (NEGATIVE) Urine Urobilinogen (<2.0) EU/dL Ur Leukocyte Esterase (NEGATIVE) Urine RBC (0-2/HPF) Urine WBC (0-5/HPF) Ur Epithelial Cells (NONE-FEW) Urine Bacteria (NEGATIVE) Urine HCG, Qual (NEGATIVE) COVID-19 ([facility]) (NEGATIVE) [place] Results Last 24 Hours: Microbiology 01/19/20 17:23 Anaerobic Blood Culture - Final Blood - Venous Med Orders - Current: Current Medications Acetaminophen (Tylenol Extra Strength) 500 mg PO Q4H PRN PRN Reason: Pain Albuterol/Ipratropium (Combivent Respimat) 0 gm INH Q6H [facility] Benzonatate (Tessalon Perles) 200 mg PO BID PRN PRN Reason: Cough Last Admin: 01/19/20 20:38 Dose: 200 mg Documented by: Dexamethasone (Dexamethasone) 6 mg PO DAILY [facility] Last Admin: 01/20/20 09:06 Dose: 6 mg Documented by: Enoxaparin Sodium (Lovenox) 40 mg SUBCUT Q12H [facility] Last Admin: 01/20/20 10:20 Dose: 40 mg Documented by: Levofloxacin/Dextrose 750 mg/ (Premix) 150 mls @ 100 mls/hr IV Q24H [facility] Levothyroxine Sodium (Levothyroxine) 75 mcg PO ACBREAKFAST [facility] Last Admin: 01/20/20 06:38 Dose: 75 mcg Documented by: Melatonin (Melatonin) 3 mg PO BEDTIME PRN PRN Reason: Insomnia Pantoprazole Sodium (Protonix) 40 mg PO ACBREAKFAST [facility] Last Admin: 01/20/20 06:38 Dose: 40 mg Documented by: Discontinued Medications Albuterol/Ipratropium (Combivent Respimat) 0 gm INH Q4H [facility] Last Admin: 01/20/20 09:08 Dose: 1 puff Documented by: Enoxaparin Sodium (Lovenox) 40 mg SUBCUT Q24H [facility] Last Admin: 01/19/20 20:39 Dose: 40 mg Documented by: Sodium Chloride (Normal Saline) 1,000 mls @ 999 mls/hr IV STAT ONE Stop: 01/19/20 17:50 Last Admin: 01/19/20 17:07 Dose: 999 mls/hr Documented by: Levofloxacin/Dextrose 750 mg/ (Premix) 150 mls @ 100 mls/hr IV ONETIME ONE Stop: 01/19/20 20:45 Last Admin: 01/19/20 19:29 Dose: 100 mls/hr Documented by: Levofloxacin/Dextrose (Levaquin In D5w 750 Mg/150 Ml) Confirm Administered Dose 150 mls @ as directed IV .STK-MED ONE Stop: 01/19/20 19:28 Last Admin: 01/19/20 19:32 Dose: Not Given Documented by: Remdesivir 200 mg/ Sodium (Chloride) 250 mls @ 250 mls/hr IV ONETIME ONE Stop: 01/19/20 19:33 Last Admin: 01/19/20 21:49 Dose: 250 mls/hr Documented by: Iopamidol (Isovue-370 (76%)) 75 ml IVPUSH ONETIME ONE Stop: 01/19/20 18:59 Last Admin: 01/19/20 18:59 Dose: 75 ml Documented by: Methylprednisolone Sodium Succinate (Solu-Medrol) 125 mg IVPUSH ONETIME ONE Stop: 01/19/20 16:59 Last Admin: 01/19/20 17:12 Dose: 125 mg Documented by: - Exam General: Alert, Oriented Neck: Supple Lungs: Clear to Auscultation, Normal Respiratory Effort Cardiovascular: Regular Rate, Regular Rhythm GI/Abdominal Exam: Soft, Non-Tender, No Distention Extremities: Normal Inspection, Non-Tender, No Pedal Edema Skin: Warm, Dry, Intact Sepsis Event Note - Evaluation Sepsis Screening Result: No Definite Risk - Focused Exam Vital Signs: Vital Signs Temp Pulse Resp BP Pulse Ox 01/20/20 11:57 36.6 C 78 18 111/47 L 89 L 01/20/20 08:00 37.0 C 67 18 104/41 L 88 L 01/20/20 03:54 36.3 C 60 17 104/56 L 90 L - Problem List Review Problem List Initiated/Reviewed/Updated: Yes - My Orders Last 24 Hours: My Active Orders 01/20/20 11:00 Enoxaparin [Lovenox] 40 mg SUBCUT Q12H - Plan Plan:: 49 yo female admitted for actue hypoxic respiratory failure, with COVID p neumonia Covid: continue remdesevir, dexamethasone, lovenox, IS and acapella, and encouraging prone position. requiring 6-8 liters O2, on Levaquin, continue to trend LFTs.
[2020-01-20] MEDS: Levofloxacin/Dextrose 5%-Water 750 MG in Premix Bag 1 BAG IV SCH (20:16)
[2020-01-20] MEDS ORDERED: Calcium Carbonate 500 MG Tab.Chew PO PRN (21:37)
[2020-01-20] MEDS: REMDESIVIR 100 MG in Sodium Chloride 0.9% 100 ML IV SCH (22:19)
[2020-01-21] MEDS: Albuterol/Ipratropium 4 GM Inhalation Spray INH SCH ×4 (04:05→23:08)
[2020-01-21 06:39] LABS: BLOOD UREA NITROGEN,BUN 11 mg/dL (7.0-18.0); CARBON DIOXIDE,CO2 26.4 mmol/L (21.0-32.0); CHLORIDE,CL 106 mmol/L (98-107); GLUCOSE RANDOM 120 mg/dL (74-106); POTASSIUM,K 3.7 mmol/L (3.5-5.1); SODIUM,NA 142 mmol/L (136-145)
[2020-01-21] MEDS: Levothyroxine 75 MCG Tab PO SCH (06:58)
[2020-01-21] MEDS: Pantoprazole 40 MG Tab.CR PO SCH (06:58)
[2020-01-21] MEDS: Dexamethasone 4 MG Tab PO SCH (09:01)
[2020-01-21] MEDS: Enoxaparin 40 MG/0.4 ML Syringe SUBCUT SCH ×2 (09:02→21:38)
--- NOTE | 2020-01-21 10:58 | PCM.PN ---
- General Info Date of Service: 01/21/20 Subjective Update: Bedside: feeling better, off o2; still complaining of a mild headache and some muscle aches Functional Status: Reports: Pain Controlled - Review of Systems General: Reports: Malaise HEENT: Reports: No Symptoms Pulmonary: Reports: Cough Cardiovascular: Reports: No Symptoms Gastrointestinal: Reports: No Symptoms Genitourinary: Reports: No Symptoms Musculoskeletal: Reports: Other (+muscle aches ) Neurological: Reports: Headache Psychiatric: Reports: No Symptoms - Patient Data Vitals - Most Recent: Last Vital Signs Temp 97.5 F 01/21/20 09:06 Pulse 56 L 01/21/20 09:06 Resp 20 01/21/20 09:06 BP 111/60 01/21/20 09:06 Pulse Ox 94 L 01/21/20 09:06 Weight - Most Recent: 103.873 kg I&O - Last 24 Hours: Intake & Output 01/20/20 01/21/20 01/21/20 22:59 06:59 14:59 Intake Total 1020 Output Total 600 Balance 420 Lab Results Last 24 Hours: Laboratory Results - last 24 hr 01/20/20 01/21/20 01/21/20 Range/Units 19:14 00:20 05:30 WBC 9.87 (4.0-11.0) K/uL RBC 4.08 L (4.30-5.90) M/uL Hgb 12.3 (12.0-16.0) g/dL Hct 36.5 (36.0-46.0) % MCV 89.5 (80.0-98.0) fL MCH 30.1 (27.0-32.0) pg MCHC 33.7 (31.0-37.0) g/dL RDW Std Deviation 43.3 (28.0-62.0) fl RDW Coeff of Aubrey 14 (11.0-15.0) % Plt Count 324 (150-400) K/uL MPV 10.60 (7.40-12.00) fL Add Manual Diff YES Neutrophils % (Manual) 49 (48.0-80.0) % Band Neutrophils % 21 % Lymphocytes % (Manual) 22 (16.0-40.0) % Monocytes % (Manual) 8 (0.0-15.0) % Absolute Seg Neuts 4.8 (1.4-5.7) Band Neutrophils # 2.1 Lymphocytes # (Manual) 2.2 (0.6-2.4) Monocytes # (Manual) 0.8 (0.0-0.8) Sodium (136-145) mmol/L Potassium (3.5-5.1) mmol/L Chloride (98-107) mmol/L Carbon Dioxide (21.0-32.0) mmol/L BUN (7.0-18.0) mg/dL Creatinine (0.6-1.0) mg/dL Est Cr Clr Drug Dosing mL/min Estimated GFR (MDRD) ml/min Glucose (74-106) mg/dL Calcium (8.5-10.1) mg/dL Total Bilirubin (0.2-1.0) mg/dL AST (15-37) IU/L ALT (14-63) IU/L Alkaline Phosphatase (46-116) U/L Troponin I < 0.050 < 0.050 (0.000-0.056) ng/mL Total Protein (6.4-8.2) g/dL Albumin (3.4-5.0) g/dL Globulin (2.6-4.0) g/dL Albumin/Globulin Ratio (0.9-1.6) 01/21/20 Range/Units 05:30 WBC (4.0-11.0) K/uL RBC (4.30-5.90) M/uL Hgb (12.0-16.0) g/dL Hct (36.0-46.0) % MCV (80.0-98.0) fL MCH (27.0-32.0) pg MCHC (31.0-37.0) g/dL RDW Std Deviation (28.0-62.0) fl RDW Coeff of Aubrey (11.0-15.0) % Plt Count (150-400) K/uL MPV (7.40-12.00) fL Add Manual Diff Neutrophils % (Manual) (48.0-80.0) % Band Neutrophils % % Lymphocytes % (Manual) (16.0-40.0) % Monocytes % (Manual) (0.0-15.0) % Absolute Seg Neuts (1.4-5.7) Band Neutrophils # Lymphocytes # (Manual) (0.6-2.4) Monocytes # (Manual) (0.0-0.8) Sodium 142 (136-145) mmol/L Potassium 3.7 (3.5-5.1) mmol/L Chloride 106 (98-107) mmol/L Carbon Dioxide 26.4 (21.0-32.0) mmol/L BUN 11 (7.0-18.0) mg/dL Creatinine 0.7 (0.6-1.0) mg/dL Est Cr Clr Drug Dosing 96.62 mL/min Estimated GFR (MDRD) > 60.0 ml/min Glucose 120 H (74-106) mg/dL Calcium 7.7 L (8.5-10.1) mg/dL Total Bilirubin 0.4 (0.2-1.0) mg/dL AST 327 H (15-37) IU/L ALT 211 H (14-63) IU/L Alkaline Phosphatase 111 (46-116) U/L Troponin I (0.000-0.056) ng/mL Total Protein 7.0 (6.4-8.2) g/dL Albumin 3.1 L (3.4-5.0) g/dL Globulin 3.9 (2.6-4.0) g/dL Albumin/Globulin Ratio 0.8 L (0.9-1.6) Amador Results Last 24 Hours: Microbiology 01/19/20 18:18 Aerobic Blood Culture - Preliminary Blood - Venous - Lab Draw NO GROWTH AFTER 1 DAY Anaerobic Blood Culture - Preliminary NO GROWTH AFTER 1 DAY 01/19/20 17:23 Aerobic Blood Culture - Preliminary Blood - Venous NO GROWTH AFTER 1 DAY Anaerobic Blood Culture - Final Med Orders - Current: Current Medications Acetaminophen (Tylenol Extra Strength) 500 mg PO Q4H PRN PRN Reason: Pain Last Admin: 01/20/20 21:02 Dose: 500 mg Documented by: Albuterol/Ipratropium (Combivent Respimat) 0 gm INH Q6HRRT [facility] Benzonatate (Tessalon Perles) 200 mg PO BID PRN PRN Reason: Cough Last Admin: 01/19/20 20:38 Dose: 200 mg Documented by: Calcium Carbonate/Glycine (Tums) 1,000 mg PO TID PRN PRN Reason: Indigestion Last Admin: 01/20/20 21:58 Dose: 1,000 mg Documented by: Dexamethasone (Dexamethasone) 6 mg PO DAILY [facility] Last Admin: 01/21/20 09:01 Dose: 6 mg Documented by: Enoxaparin Sodium (Lovenox) 40 mg SUBCUT BID [facility] Last Admin: 01/21/20 09:02 Dose: 40 mg Documented by: Levofloxacin/Dextrose 750 mg/ (Premix) 150 mls @ 100 mls/hr IV Q24H [facility] Last Admin: 01/20/20 20:16 Dose: 100 mls/hr Documented by: Remdesivir 100 mg/ Sodium (Chloride) 100 mls @ 100 mls/hr IV Q24H [facility] Stop: 01/24/20 21:01 Last Admin: 01/20/20 22:19 Dose: 100 mls/hr Documented by: Levothyroxine Sodium (Levothyroxine) 75 mcg PO ACBREAKFAST [facility] Last Admin: 01/21/20 06:58 Dose: 75 mcg Documented by: Melatonin (Melatonin) 3 mg PO BEDTIME PRN PRN Reason: Insomnia Last Admin: 01/20/20 21:02 Dose: 3 mg Documented by: Pantoprazole Sodium (Protonix) 40 mg PO ACBREAKFAST [facility] Last Admin: 01/21/20 06:58 Dose: 40 mg Documented by: Discontinued Medications Albuterol/Ipratropium (Combivent Respimat) 0 gm INH Q4H [facility] Last Admin: 01/20/20 09:08 Dose: 1 puff Documented by: Albuterol/Ipratropium (Combivent Respimat) 0 gm INH Q6H [facility] Last Admin: 01/21/20 04:05 Dose: 1 puff Documented by: Enoxaparin Sodium (Lovenox) 40 mg SUBCUT Q24H [facility] Last Admin: 01/19/20 20:39 Dose: 40 mg Documented by: Enoxaparin Sodium (Lovenox) 40 mg SUBCUT Q12H [facility] Last Admin: 01/20/20 23:40 Dose: 40 mg Documented by: Sodium Chloride (Normal Saline) 1,000 mls @ 999 mls/hr IV STAT ONE Stop: 01/19/20 17:50 Last Admin: 01/19/20 17:07 Dose: 999 mls/hr Documented by: Levofloxacin/Dextrose 750 mg/ (Premix) 150 mls @ 100 mls/hr IV ONETIME ONE Stop: 01/19/20 20:45 Last Admin: 01/19/20 19:29 Dose: 100 mls/hr Documented by: Levofloxacin/Dextrose (Levaquin In D5w 750 Mg/150 Ml) Confirm Administered Dose 150 mls @ as directed IV .STK-MED ONE Stop: 01/19/20 19:28 Last Admin: 01/19/20 19:32 Dose: Not Given Documented by: Remdesivir 200 mg/ Sodium (Chloride) 250 mls @ 250 mls/hr IV ONETIME ONE Stop: 01/19/20 19:33 Last Admin: 01/19/20 21:49 Dose: 250 mls/hr Documented by: Iopamidol (Isovue-370 (76%)) 75 ml IVPUSH ONETIME ONE Stop: 01/19/20 18:59 Last Admin: 01/19/20 18:59 Dose: 75 ml Documented by: Methylprednisolone Sodium Succinate (Solu-Medrol) 125 mg IVPUSH ONETIME ONE Stop: 01/19/20 16:59 Last Admin: 01/19/20 17:12 Dose: 125 mg Documented by: - Exam Quality Assessment: No: Supplemental Oxygen General: Alert, Oriented, Cooperative, No Acute Distress HEENT: EOMI, Mucous Membr. Moist/[place] Neck: Supple Lungs: Clear to Auscultation, Normal Respiratory Effort Cardiovascular: Regular Rate, Regular Rhythm GI/Abdominal Exam: Soft, Non-Tender Back Exam: Normal Inspection Extremities: Normal Inspection Skin: Warm Wound/Incisions: Healing Well Neurological: No New Focal Deficit Psy/Mental Status: Alert, Normal Affect, Normal Mood Sepsis Event Note - Evaluation Sepsis Screening Result: No Definite Risk - Focused Exam Vital Signs: Vital Signs Temp Pulse Resp BP Pulse Ox 01/21/20 09:06 97.5 F 56 L 20 111/60 94 L 01/21/20 04:00 97.2 F 60 16 113/60 91 L 01/20/20 23:41 96.7 F L 65 18 117/62 92 L - Problem List Review Problem List Initiated/Reviewed/Updated: Yes - My Orders Last 24 Hours: My Active Orders 01/20/20 20:00 Levofloxacin/Dextrose 5%-Water [Levaquin in D5W 750 MG/150 ML] 750 mg Premix Bag 1 bag IV Q24H 01/21/20 10:50 Discontinue Telemetry Monitoring [Cardiac Monitoring Discontinue] [RC] Click to Edit 01/21/20 12:00 Albuterol/Ipratropium [Combivent Respimat] 0 gm INH Q6HRRT 01/22/20 05:11 CBC WITH AUTO DIFF [HEME] AM COMPREHENSIVE METABOLIC PN,CMP [CHEM] AM - Plan Plan:: 49 yo female admitted for acute hypoxic respiratory failure, with COVID pneumonia Covid: continue remdesevir, dexamethasone, Lovenox, IS and acapella, and encouraging prone position. Off supplemental o2 as of rounds this AM; continue to monitor today evaluate for needing supplemental o2; supportive management+ symptom control LFT: have not increased; continue remdesivir
[2020-01-21] MEDS: Levofloxacin/Dextrose 5%-Water 750 MG in Premix Bag 1 BAG IV SCH (19:50)
[2020-01-21] MEDS: REMDESIVIR 100 MG in Sodium Chloride 0.9% 100 ML IV SCH (21:39)
[2020-01-22] MEDS: Benzonatate 100 MG Cap PO PRN (02:01)
[2020-01-22] MEDS: Albuterol/Ipratropium 4 GM Inhalation Spray INH SCH ×2 (05:55→11:08)
[2020-01-22 05:59] LABS: BLOOD UREA NITROGEN,BUN 11 mg/dL (7.0-18.0); CARBON DIOXIDE,CO2 25.7 mmol/L (21.0-32.0); CHLORIDE,CL 106 mmol/L (98-107); GLUCOSE RANDOM 112 mg/dL (74-106); POTASSIUM,K 3.3 mmol/L (3.5-5.1); SODIUM,NA 140 mmol/L (136-145)
[2020-01-22] MEDS: Pantoprazole 40 MG Tab.CR PO SCH (07:00)
[2020-01-22] MEDS: Levothyroxine 75 MCG Tab PO SCH (07:01)
[2020-01-22] MEDS ORDERED: Potassium Chloride 20 MEQ Tab.ER PO ONE (08:11)
[2020-01-22] MEDS: Dexamethasone 4 MG Tab PO SCH (09:06)
[2020-01-22] MEDS: Enoxaparin 40 MG/0.4 ML Syringe SUBCUT SCH (09:07)
--- NOTE | 2020-01-22 11:28 | PCM.DCSUM1 ---
<Samir Barrera - Last Filed: 01/22/20 18:39> Discharge Summary - Hospital Course Free Text/Narrative:: Patient is a 49-year-old female with a significant past medical history of hypothyroidism presenting today to the ED with worsening cough and shortness of breath at rest. Patient was initially seen in the ED and was diagnosed with right lower lobe pneumonia and was sent home on azithromycin (01-16-2020). Patient however was complaining of increasing shortness of breath, increasing sputum with flecks of blood in it, sore throat, subjective fever and chills and malaise. Patient otherwise denies any chest pain, abdominal pain, diarrhea, constipation, dysuria. Patient cannot think of any overt sick contacts or any known sources of exposure. ED course: Positive COVID Elevated d-dimer Chest CT: Non-PE protocol: No obvious PE however bilateral lower lobe patchiness/infiltrates appreciated compatible with pneumonia No effusion appreciated Troponin x1- Oxygen saturation down to 8788% on room air; started on 3.5 L nasal cannula with improvement of saturations greater than 92%. Received 1 L of fluid, Solu-Medrol and dose of Levaquin. Hospital course: Started on Remdesivir and levaquin, dexamethasone. Following morning pt was weaned off o2 but was still c.o fatigue and some myalgias. Continued to monitor pt. and pt .throughout stay improved and no longer required further supplemental o2. Pt was afebrile and vitals were stable Transaminitis had also improved throughout stay Day of discharge: stable condition, vitals and labs improving; requested discharge. Discharged with additional dexamethasone (complete 10 day course) and advised to quarantine per CDC guidelines. Follow up appointment established Discharged home in stable condition - Discharge Data Discharge Date: 01/22/20 Discharge Disposition: Home, Self-Care 01 Condition: Good - Referral to Home Health Primary Care Physician: PCP None - Patient Instructions Diet: Regular Diet as Tolerated Notify Provider of: Fever, Nausea and/or Vomiting Other/Special Instructions: PROCEED TO THE EMERGENCY DEPARTMENT IF YOU DEVELOP DIFFICULTY BREATHING - Discharge Plan *PRESCRIPTION DRUG MONITORING PROGRAM REVIEWED*: No *COPY OF PRESCRIPTION DRUG MONITORING REPORT IN PATIENT LENNY: No Prescriptions/Med Rec: dexAMETHasone [Dexamethasone] 6 mg PO DAILY 6 Days #9 tablet Home Medications: Home Meds Azithromycin [Zithromax] 250 mg PO DAILY #4 tablet 01/16/20 [Rx] Ibuprofen 600 mg PO Q6HR PRN #30 tablet 01/16/20 [Rx] Levothyroxine 75 mcg PO ACBREAKFAST 01/16/20 [History] Acetaminophen [Tylenol Extra Strength] 500 mg PO Q4H PRN tablet 01/22/20 [Rx] dexAMETHasone [Dexamethasone] 6 mg PO DAILY 6 Days #9 tablet 01/22/20 [Rx] Patient Handouts: COVID-19 Frequently Asked Questions, COVID-19, COVID-19: How to Protect Yourself and Others - CDC, Dexamethasone tablets Referrals: Anya Vega,Clinic [Ordering Only Provider] - - Discharge Summary/Plan Comment DC Time >30 min.: No - Patient Data Vitals - Most Recent: Last Vital Signs Temp 96.6 F L 01/22/20 08:00 Pulse 60 01/22/20 08:00 Resp 16 01/22/20 08:00 BP 117/73 01/22/20 08:00 Pulse Ox 94 L 01/22/20 08:00 Weight - Most Recent: 103.873 kg I&O - Last 24 hours: Intake & Output 01/21/20 01/22/20 01/22/20 22:59 06:59 14:59 Intake Total 920 980 Output Total 1050 720 Balance -130 260 Lab Results - Last 24 hrs: Laboratory Results - last 24 hr 01/22/20 01/22/20 Range/Units 05:15 05:15 WBC 10.36 (4.0-11.0) K/uL RBC 3.96 L (4.30-5.90) M/uL Hgb 11.8 L (12.0-16.0) g/dL Hct 35.5 L (36.0-46.0) % MCV 89.6 (80.0-98.0) fL MCH 29.8 (27.0-32.0) pg MCHC 33.2 (31.0-37.0) g/dL RDW Std Deviation 45.7 (28.0-62.0) fl RDW Coeff of Aubrey 14 (11.0-15.0) % Plt Count 341 (150-400) K/uL MPV 10.20 (7.40-12.00) fL Add Manual Diff YES Neutrophils % (Manual) 65 (48.0-80.0) % Band Neutrophils % 3 % Lymphocytes % (Manual) 24 (16.0-40.0) % Monocytes % (Manual) 8 (0.0-15.0) % Nucleated RBC % 0.0 /100WBC Absolute Seg Neuts 6.7 H (1.4-5.7) Band Neutrophils # 0.3 Lymphocytes # (Manual) 2.5 H (0.6-2.4) Monocytes # (Manual) 0.8 (0.0-0.8) Nucleated RBCs # 0 K/uL Sodium 140 (136-145) mmol/L Potassium 3.3 L (3.5-5.1) mmol/L Chloride 106 (98-107) mmol/L Carbon Dioxide 25.7 (21.0-32.0) mmol/L BUN 11 (7.0-18.0) mg/dL Creatinine 0.6 (0.6-1.0) mg/dL Est Cr Clr Drug Dosing 112.72 mL/min Estimated GFR (MDRD) > 60.0 ml/min Glucose 112 H (74-106) mg/dL Calcium 7.2 L (8.5-10.1) mg/dL Total Bilirubin 0.3 (0.2-1.0) mg/dL AST 193 H (15-37) IU/L ALT 173 H (14-63) IU/L Alkaline Phosphatase 105 (46-116) U/L Total Protein 6.4 (6.4-8.2) g/dL Albumin 2.9 L (3.4-5.0) g/dL Globulin 3.5 (2.6-4.0) g/dL Albumin/Globulin Ratio 0.8 L (0.9-1.6) HERIBERTO Results - Last 24 hrs: Microbiology 01/19/20 18:18 Aerobic Blood Culture - Preliminary Blood - Venous - Lab Draw NO GROWTH AFTER 2 DAYS Anaerobic Blood Culture - Preliminary NO GROWTH AFTER 2 DAYS 01/19/20 17:23 Aerobic Blood Culture - Preliminary Blood - Venous NO GROWTH AFTER 2 DAYS Anaerobic Blood Culture - Final Med Orders - Current: Current Medications Acetaminophen (Tylenol Extra Strength) 500 mg PO Q4H PRN PRN Reason: Pain Last Admin: 01/20/20 21:02 Dose: 500 mg Documented by: Albuterol/Ipratropium (Combivent Respimat) 0 gm INH Q6HRRT [facility] Last Admin: 01/22/20 11:08 Dose: 1 inhalation Documented by: Benzonatate (Tessalon Perles) 200 mg PO BID PRN PRN Reason: Cough Last Admin: 01/22/20 02:01 Dose: 200 mg Documented by: Calcium Carbonate/Glycine (Tums) 1,000 mg PO TID PRN PRN Reason: Indigestion Last Admin: 01/20/20 21:58 Dose: 1,000 mg Documented by: Dexamethasone (Dexamethasone) 6 mg PO DAILY [facility] Last Admin: 01/22/20 09:06 Dose: 6 mg Documented by: Enoxaparin Sodium (Lovenox) 40 mg SUBCUT BID [facility] Last Admin: 01/22/20 09:07 Dose: 40 mg Documented by: Levofloxacin/Dextrose 750 mg/ (Premix) 150 mls @ 100 mls/hr IV Q24H [facility] Last Admin: 01/21/20 19:50 Dose: 100 mls/hr Documented by: Remdesivir 100 mg/ Sodium (Chloride) 100 mls @ 100 mls/hr IV Q24H [facility] Stop: 01/23/20 21:59 Last Admin: 01/21/20 21:39 Dose: 100 mls/hr Documented by: Levothyroxine Sodium (Levothyroxine) 75 mcg PO ACBREAKFAST [facility] Last Admin: 01/22/20 07:01 Dose: 75 mcg Documented by: Melatonin (Melatonin) 3 mg PO BEDTIME PRN PRN Reason: Insomnia Last Admin: 01/20/20 21:02 Dose: 3 mg Documented by: Pantoprazole Sodium (Protonix) 40 mg PO ACBREAKFAST [facility] Last Admin: 01/22/20 07:00 Dose: 40 mg Documented by: Discontinued Medications Albuterol/Ipratropium (Combivent Respimat) 0 gm INH Q4H [facility] Last Admin: 01/20/20 09:08 Dose: 1 puff Documented by: Albuterol/Ipratropium (Combivent Respimat) 0 gm INH Q6H [facility] Last Admin: 01/21/20 04:05 Dose: 1 puff Documented by: Enoxaparin Sodium (Lovenox) 40 mg SUBCUT Q24H [facility] Last Admin: 01/19/20 20:39 Dose: 40 mg Documented by: Enoxaparin Sodium (Lovenox) 40 mg SUBCUT Q12H [facility] Last Admin: 01/20/20 23:40 Dose: 40 mg Documented by: Sodium Chloride (Normal Saline) 1,000 mls @ 999 mls/hr IV STAT ONE Stop: 01/19/20 17:50 Last Admin: 01/19/20 17:07 Dose: 999 mls/hr Documented by: Levofloxacin/Dextrose 750 mg/ (Premix) 150 mls @ 100 mls/hr IV ONETIME ONE Stop: 01/19/20 20:45 Last Admin: 01/19/20 19:29 Dose: 100 mls/hr Documented by: Levofloxacin/Dextrose (Levaquin In D5w 750 Mg/150 Ml) Confirm Administered Dose 150 mls @ as directed IV .STK-MED ONE Stop: 01/19/20 19:28 Last Admin: 01/19/20 19:32 Dose: Not Given Documented by: Remdesivir 200 mg/ Sodium (Chloride) 250 mls @ 250 mls/hr IV ONETIME ONE Stop: 01/19/20 19:33 Last Admin: 01/19/20 21:49 Dose: 250 mls/hr Documented by: Iopamidol (Isovue-370 (76%)) 75 ml IVPUSH ONETIME ONE Stop: 01/19/20 18:59 Last Admin: 01/19/20 18:59 Dose: 75 ml Documented by: Methylprednisolone Sodium Succinate (Solu-Medrol) 125 mg IVPUSH ONETIME ONE Stop: 01/19/20 16:59 Last Admin: 01/19/20 17:12 Dose: 125 mg Documented by: Potassium Chloride (Klor-Con M20) 40 meq PO ONETIME ONE Stop: 01/22/20 08:12 Last Admin: 01/22/20 09:06 Dose: 40 meq Documented by: <Ar Sepulveda - Last Filed: 02/03/20 11:39> Discharge Summary - Referral to Home Health Primary Care Physician: PCP None - Patient Data Vitals - Most Recent: Last Vital Signs Temp 35.7 C L 01/22/20 12:00 Pulse 60 01/22/20 12:00 Resp 16 01/22/20 12:00 BP 120/59 L 01/22/20 12:00 Pulse Ox 96 01/22/20 12:00 Med Orders - Current: Current Medications Discontinued Medications Acetaminophen (Tylenol Extra Strength) 500 mg PO Q4H PRN PRN Reason: Pain Last Admin: 01/20/20 21:02 Dose: 500 mg Documented by: Albuterol/Ipratropium (Combivent Respimat) 0 gm INH Q4H [facility] Last Admin: 01/20/20 09:08 Dose: 1 puff Documented by: Albuterol/Ipratropium (Combivent Respimat) 0 gm INH Q6H [facility] Last Admin: 01/21/20 04:05 Dose: 1 puff Documented by: Albuterol/Ipratropium (Combivent Respimat) 0 gm INH Q6HRRT [facility] Last Admin: 01/22/20 11:08 Dose: 1 inhalation Documented by: Benzonatate (Tessalon Perles) 200 mg PO BID PRN PRN Reason: Cough Last Admin: 01/22/20 02:01 Dose: 200 mg Documented by: Calcium Carbonate/Glycine (Tums) 1,000 mg PO TID PRN PRN Reason: Indigestion Last Admin: 01/20/20 21:58 Dose: 1,000 mg Documented by: Dexamethasone (Dexamethasone) 6 mg PO DAILY [facility] Last Admin: 01/22/20 09:06 Dose: 6 mg Documented by: Enoxaparin Sodium (Lovenox) 40 mg SUBCUT Q24H [facility] Last Admin: 01/19/20 20:39 Dose: 40 mg Documented by: Enoxaparin Sodium (Lovenox) 40 mg SUBCUT Q12H [facility] Last Admin: 01/20/20 23:40 Dose: 40 mg Documented by: Enoxaparin Sodium (Lovenox) 40 mg SUBCUT BID [facility] Last Admin: 01/22/20 09:07 Dose: 40 mg Documented by: Sodium Chloride (Normal Saline) 1,000 mls @ 999 mls/hr IV STAT ONE Stop: 01/19/20 17:50 Last Admin: 01/19/20 17:07 Dose: 999 mls/hr Documented by: Levofloxacin/Dextrose 750 mg/ (Premix) 150 mls @ 100 mls/hr IV ONETIME ONE Stop: 01/19/20 20:45 Last Admin: 01/19/20 19:29 Dose: 100 mls/hr Documented by: Levofloxacin/Dextrose (Levaquin In D5w 750 Mg/150 Ml) Confirm Administered Dose 150 mls @ as directed IV .STK-MED ONE Stop: 01/19/20 19:28 Last Admin: 01/19/20 19:32 Dose: Not Given Documented by: Remdesivir 200 mg/ Sodium (Chloride) 250 mls @ 250 mls/hr IV ONETIME ONE Stop: 01/19/20 19:33 Last Admin: 01/19/20 21:49 Dose: 250 mls/hr Documented by: Levofloxacin/Dextrose 750 mg/ (Premix) 150 mls @ 100 mls/hr IV Q24H [facility] Last Admin: 01/21/20 19:50 Dose: 100 mls/hr Documented by: Remdesivir 100 mg/ Sodium (Chloride) 100 mls @ 100 mls/hr IV Q24H [facility] Stop: 01/23/20 21:59 Last Admin: 01/21/20 21:39 Dose: 100 mls/hr Documented by: Iopamidol (Isovue-370 (76%)) 75 ml IVPUSH ONETIME ONE Stop: 01/19/20 18:59 Last Admin: 01/19/20 18:59 Dose: 75 ml Documented by: Levothyroxine Sodium (Levothyroxine) 75 mcg PO ACBREAKFAST [facility] Last Admin: 01/22/20 07:01 Dose: 75 mcg Documented by: Melatonin (Melatonin) 3 mg PO BEDTIME PRN PRN Reason: Insomnia Last Admin: 01/20/20 21:02 Dose: 3 mg Documented by: Methylprednisolone Sodium Succinate (Solu-Medrol) 125 mg IVPUSH ONETIME ONE Stop: 01/19/20 16:59 Last Admin: 01/19/20 17:12 Dose: 125 mg Documented by: Pantoprazole Sodium (Protonix) 40 mg PO ACBREAKFAST [facility] Last Admin: 01/22/20 07:00 Dose: 40 mg Documented by: Potassium Chloride (Klor-Con M20) 40 meq PO ONETIME ONE Stop: 01/22/20 08:12 Last Admin: 01/22/20 09:06 Dose: 40 meq Documented by: - Free Text/Narrative Note: I have seen and evaluated the patient. I have discussed findings and treatment plan with resident. I agree with the assessment and plan as outlined in the following note.
== END 2020-01-22 14:16 | disposition home or self-care (01) | DRG 177 ==
LOC: MW.ED 16:36 → MW.MS 18:00
PROVIDERS: ADMIT Internal Medicine; ATTEND Internal Medicine
PROC: XW033E5 Introduction of Remdesivir Anti-infective into Peripheral Vein, Percutaneous Approach, New Technology Group 5 (ICD-10-PCS; principal; 2020-01-19)
PROC: 8E0ZXY6 Isolation (ICD-10-PCS; 2020-01-19)
PROC: XW033E5 Introduction of Remdesivir Anti-infective into Peripheral Vein, Percutaneous Approach, New Technology Group 5 (ICD-10-PCS; 2020-01-20)
PROC: XW033E5 Introduction of Remdesivir Anti-infective into Peripheral Vein, Percutaneous Approach, New Technology Group 5 (ICD-10-PCS; 2020-01-21)
DX: U07.1 COVID-19 (principal); J12.89 Other viral pneumonia; J96.01 Acute respiratory failure with hypoxia; R74.8 Abnormal levels of other serum enzymes; R79.1 Abnormal coagulation profile; E03.9 Hypothyroidism, unspecified; Z79.890 Hormone replacement therapy; Z79.899 Other long term (current) drug therapy; I25.2 Old myocardial infarction; Z85.3 Personal history of malignant neoplasm of breast; Z90.49 Acquired absence of other specified parts of digestive tract
CPT/HCPCS: 36415; 71260; 71260-26; 80053; 81001; 81025; 83605; 84484; 85025; 85379; 87040; 93005; 94640; 94668; 96361; 96374; 99222; 99232; 99238; 99285; 99285-25; A9270-GY; J1650; J1956; J2930; J7030; J7050; J8540; Q9967; U0002

== ENCOUNTER 2021-04-16 19:58 | Emergency (ER) | payer OTHER ==
[2021-04-16] MEDS ORDERED: Ketorolac 30 MG/ML SDV IVPUSH ONE (20:41)
[2021-04-16] MEDS ORDERED: Morphine 4 MG/ML VIAL IVPUSH ONE (20:42)
[2021-04-16] MEDS ORDERED: Ondansetron 4 MG/2 ML SDV IVPUSH ONE (20:43)
[2021-04-16 20:50] LABS: BLOOD UREA NITROGEN,BUN 11 mg/dL (7.0-18.0); CARBON DIOXIDE,CO2 29.3 mmol/L (21.0-32.0); CHLORIDE,CL 106 mmol/L (98-107); GLUCOSE RANDOM 111 mg/dL (74-106); POTASSIUM,K 3.9 mmol/L (3.5-5.1); SODIUM,NA 143 mmol/L (136-145)
[2021-04-16] MEDS ORDERED: Iopamidol 755 MG/ML 500 ML Multipack Bottle IVPUSH ONE (21:10)
--- NOTE | 2021-04-16 21:25 | EDM.PDOC ---
<Ashish Marcano - Last Filed: 04/16/21 23:06> ED HPI GENERAL MEDICAL PROBLEM - General Chief Complaint: Chest Pain Stated Complaint: CHEST PAIN Time Seen by Provider: 04/16/21 20:03 - History of Present Illness INITIAL COMMENTS - FREE TEXT/NARRATIVE: 11:07 PM: CTA of the chest reveals a portion of catheter which extends from the main pulmonary artery into the left pulmonary artery and ultimately into a left lower lobe pulmonary arterial branch. There is no acute pulmonary embolism. After discussion with patient, she reports that she does have a history for breast cancer and she had a left subclavian catheter in place for her chemotherapy. Patient presents with back and 2001 when they removed the hub of the catheter and was unable to remove the catheter itself. She reports that they got x-rays of it and it was stable so the decision was made to not surgically remove it. Patient reports that earlier today she felt acute onset of left-sided chest pain and is still experiencing chest discomfort. My concern is the pain that she is experiencing is secondary to the catheter that was dislodged and currently in her pulmonary artery system. I have discussed the case with Dr. Jones, who is on-call for radiology at [facility]. He has agreed with having patient transferred to the emergency department there for further evaluation and snaring and removal of the catheter fragment. I have discussed the case with Dr. Bird from the emergency department who has agreed to accept patient in transfer for procedure. Patient will be kept n.p.o. after midnight. - Related Data Allergies Allergy/AdvReac Type Severity Reaction Status Date / Time No Known Allergies Allergy Verified 04/16/21 20:21 Home Meds: Home Meds Azithromycin [Zithromax] 250 mg PO DAILY #4 tablet 01/16/20 [Rx] Ibuprofen 600 mg PO Q6HR PRN #30 tablet 01/16/20 [Rx] Levothyroxine 75 mcg PO ACBREAKFAST 01/16/20 [History] Acetaminophen [Tylenol Extra Strength] 500 mg PO Q4H PRN tablet 01/22/20 [Rx] dexAMETHasone [Dexamethasone] 6 mg PO DAILY 6 Days #9 tablet 01/22/20 [Rx] ED ROS GENERAL - Review of Systems Review Of Systems: See Below ED EXAM, GENERAL - Physical Exam Exam: See Below Departure - Departure Time of Disposition: 23:08 Disposition: DC/Tfer to Acute Hospital 02 Condition: Good Clinical Impression: Pulmonary artery injury, Chest pain, Occlusion of pulmonary artery - Discharge Information Referrals: PCP,None [Primary Care Provider] - Forms: ED Department Discharge <Catherine Malhotra - Last Filed: 04/20/21 10:32> ED HPI GENERAL MEDICAL PROBLEM - General Source of Information: Reports: Patient History Limitations: Reports: No Limitations - History of Present Illness INITIAL COMMENTS - FREE TEXT/NARRATIVE: HISTORY AND PHYSICAL: History of present illness: Patient is a 50-year-old female resents emergency room today with concern of left sided pleuritic chest pain that began at 6 PM. Patient states that the pain is worse with inspiration but somehow she finds her self taking deep breaths as it temporarily also helps the symptoms. Patient states that she also has discomfort with pressing on the area but states that it does feel deeper. Patient states that she does have a history of breast cancer and had a mas tectomy in January of her right breast and states that they believe that they have cleared the cancer but she is doing frequently following up. Patient states that she is not on chemo or radiation. Patient denies any other health history. Patient states she did take a dose of Tylenol before coming to the emergency room which did not affect her discomfort. Denies any trauma or injury. Patient denies fever, chills, chest pain, shortness of breath, or cough. Denies headache, neck stiff ness, change in vision, syncope, or near syncope. Denies nausea, vomiting, abdominal pain, diarrhea, constipation, or dysuria. Has not noted any blood in urine or stool. Patient has been eating and drinking appropriately. Review of systems: As per history of present illness and below otherwise all systems reviewed and negative. Past medical history: As per history of present illness and as reviewed below otherwise noncontributory. Surgical history: As per history of present illness and as reviewed below otherwise noncontributory. Social history: See social history for further information Family history: As per history of present illness and as reviewed below otherwise noncontributory. Physical exam: General: Patient is alert, oriented, and in no acute distress. Patient sitting on exam table, holding left axillary chest appearing uncomfortable. However, vitally stable and reviewed by me. She does periodically take deep breaths as she states this does temporarily help.. HEENT: Atraumatic, normocephalic, pupils equal and reactive bilaterally, negative for conjunctival pallor or scleral icterus, mucous membranes moist, throat clear, neck supple, nontender, trachea midline. No drooling or trismus noted. No meningeal signs. No hot potato voice noted. Lungs: Clear to auscultation, breath sounds equal bilaterally, chest nontender. Tenderness to palpation of the left sided breast area and left axillary area. No breast tenderness, or nipple discharge. No masses felt. Heart: S1S2, regular rate and rhythm without overt murmur Abdomen: Soft, nondistended, nontender. Negative for masses or hepatosplenomegaly. Negative for costovertebral tenderness. Pelvis: Stable nontender. Genitourinary: Deferred. Rectal: Deferred. Skin: Intact, warm, dry. No lesions or rashes noted. Extremities: Atraumatic, negative for cords or calf pain. Neurovascular unremarkable. Neuro: Awake, alert, oriented. Cranial nerves II through XII unremarkable. Cerebellum unremarkable. Motor and sensory unremarkable throughout. Exam nonfocal. Medical Decision Making: Patient is a 50-year-old female, with a history of breast cancer status post right-sided mastectomy in January of this year, who presents emergency room today with concern of left sided chest pain that she describes as pleuritic. Upon arrival to the ED, patient is vitally stable but does have significant tenderness to palpation of her left sided axillary chest wall area and is holding her left axilla taking deep breaths to help alleviate the discomfort. Will obtain cardiac evaluation. Given patient's cancer history, plan to obtain angiography chest rule out pulmonary embolism. Also provide therapeutics today in the emergency room. See Dr. Marcano dictation for specific EKG interpretation. Otherwise, normal sinus rhythm without STEMI. CBC does show a mild leukocytosis with white blood cell count 11.37, otherwise mild derangements of CBC and CMP are unremarkable. Troponin negative. hCG negative. Lipase within normal limits. Pending angiography CT at this time. Dr. Marcano has assumed care and will follow remaining diagnostic and disposition for patient. Diagnostics: EKG, CBC, CMP, serum hcg, Trop, Ang CT Chest Therapeutics: Toradol Prescription: Impression: Atypical chest pain Plan: Definitive disposition and diagnosis as appropriate pending reevaluation and review of above. Left Chest Pain Score (Numeric/FACES): 6 Past Medical History HEENT History: Reports: None Cardiovascular History: Reports: [place] Other Cardiovascular History: pt reports "mild heart attack" Respiratory History: Reports: None Gastrointestinal History: Reports: None Genitourinary History: Reports: None PLACE CH[employer]OLTER History: Reports: None Musculoskeletal History: Reports: None Neurological History: Reports: None Psychiatric History: Reports: None Endocrine/Metabolic History: Reports: Hypothyroidism Hematologic History: Reports: None Oncologic (Cancer) History: Reports: Breast Dermatologic History: Reports: None - Infectious Disease History Infectious Disease History: Reports: Chicken Pox - Past Surgical History Oncologic Surgical History: Reports: Lumpectomy, Mastectomy Social & Family History - Family History Family Medical History: No Pertinent Family History - Caffeine Use Caffeine Use: Reports: None ED ROS GENERAL - Review of Systems Review Of Systems: Comprehensive ROS is negative, except as noted in HPI. ED EXAM, GENERAL - Physical Exam Exam: See Below (see dictation) Course - Vital Signs Last Recorded V/S: Last Vital Signs Temp 98.6 F 04/17/21 02:12 Pulse 62 04/17/21 04:18 Resp 16 04/17/21 04:18 BP 113/61 04/17/21 04:18 Pulse Ox 96 04/17/21 04:18 - Orders/Labs/Meds Labs: Laboratory Tests 04/16/21 04/16/21 04/16/21 Range/Units 20:16 20:16 20:16 WBC 11.37 H (4.0-11.0) K/uL RBC 4.22 L (4.30-5.90) M/uL Hgb 12.7 (12.0-16.0) g/dL Hct 37.8 (36.0-46.0) % MCV 89.6 (80.0-98.0) fL MCH 30.1 (27.0-32.0) pg MCHC 33.6 (31.0-37.0) g/dL RDW Std Deviation 44.3 (28.0-62.0) fl RDW Coeff of Aubrey 14 (11.0-15.0) % Plt Count 301 (150-400) K/uL MPV 10.40 (7.40-12.00) fL Neut % (Auto) 47.5 L (48.0-80.0) % Lymph % (Auto) 43.2 H (16.0-40.0) % [place] % (Auto) 6.9 (0.0-15.0) % Eos % (Auto) 2.2 (0.0-7.0) % Baso % (Auto) 0.2 (0.0-1.5) % Neut # (Auto) 5.4 (1.4-5.7) K/uL Lymph # (Auto) 4.9 H (0.6-2.4) K/uL [place] # (Auto) 0.8 (0.0-0.8) K/uL Eos # (Auto) 0.3 (0.0-0.7) K/uL Baso # (Auto) 0.0 (0.0-0.1) K/uL Nucleated RBC % 0.0 /100WBC Nucleated RBCs # 0 K/uL Sodium 143 (136-145) mmol/L Potassium 3.9 (3.5-5.1) mmol/L Chloride 106 (98-107) mmol/L Carbon Dioxide 29.3 (21.0-32.0) mmol/L BUN 11 (7.0-18.0) mg/dL Creatinine 0.7 (0.6-1.0) mg/dL Est Cr Clr Drug Dosing 95.58 mL/min Estimated GFR (MDRD) > 60.0 ml/min Glucose 111 H (74-106) mg/dL Calcium 8.7 (8.5-10.1) mg/dL Total Bilirubin 0.2 (0.2-1.0) mg/dL AST 25 (15-37) IU/L ALT 39 (14-63) IU/L Alkaline Phosphatase 108 (46-116) U/L Troponin I < 0.050 (0.000-0.056) ng/mL Total Protein 7.5 (6.4-8.2) g/dL Albumin 3.3 L (3.4-5.0) g/dL Globulin 4.2 H (2.6-4.0) g/dL Albumin/Globulin Ratio 0.8 L (0.9-1.6) Lipase (73-393) U/L HCG, Qual NEGATIVE (NEG) Influenza Type A RNA (NEGATIVE) Influenza Type B RNA (NEGATIVE) SARS-CoV-2 RNA (MARCO) (NEGATIVE) 12/09/21 12/09/21 Range/Units 20:16 22:11 WBC (4.0-11.0) K/uL RBC (4.30-5.90) M/uL Hgb (12.0-16.0) g/dL Hct (36.0-46.0) % MCV (80.0-98.0) fL MCH (27.0-32.0) pg MCHC (31.0-37.0) g/dL RDW Std Deviation (28.0-62.0) fl RDW Coeff of Aubrey (11.0-15.0) % Plt Count (150-400) K/uL MPV (7.40-12.00) fL Neut % (Auto) (48.0-80.0) % Lymph % (Auto) (16.0-40.0) % [place] % (Auto) (0.0-15.0) % Eos % (Auto) (0.0-7.0) % Baso % (Auto) (0.0-1.5) % Neut # (Auto) (1.4-5.7) K/uL Lymph # (Auto) (0.6-2.4) K/uL [place] # (Auto) (0.0-0.8) K/uL Eos # (Auto) (0.0-0.7) K/uL Baso # (Auto) (0.0-0.1) K/uL Nucleated RBC % /100WBC Nucleated RBCs # K/uL Sodium (136-145) mmol/L Potassium (3.5-5.1) mmol/L Chloride (98-107) mmol/L Carbon Dioxide (21.0-32.0) mmol/L BUN (7.0-18.0) mg/dL Creatinine (0.6-1.0) mg/dL Est Cr Clr Drug Dosing mL/min Estimated GFR (MDRD) ml/min Glucose (74-106) mg/dL Calcium (8.5-10.1) mg/dL Total Bilirubin (0.2-1.0) mg/dL AST (15-37) IU/L ALT (14-63) IU/L Alkaline Phosphatase (46-116) U/L Troponin I (0.000-0.056) ng/mL Total Protein (6.4-8.2) g/dL Albumin (3.4-5.0) g/dL Globulin (2.6-4.0) g/dL Albumin/Globulin Ratio (0.9-1.6) Lipase 131 (73-393) U/L HCG, Qual (NEG) Influenza Type A RNA NEGATIVE (NEGATIVE) Influenza Type B RNA NEGATIVE (NEGATIVE) SARS-CoV-2 RNA (MARCO) NEGATIVE (NEGATIVE) Meds: Medications Discontinued Medications Generic Name Dose Route Start Last Admin Trade Name Abelardo PRN Reason Stop Dose Admin Iopamidol 100 ml 04/16/21 21:10 04/16/21 21:37 Iopamidol 755 Mg/Ml 500 Ml Multipack Bottle IVPUSH 04/16/21 21:11 100 ml ONETIME ONE Administration Ketorolac Tromethamine 30 mg 04/16/21 20:41 04/16/21 21:16 Ketorolac 30 Mg/Ml Sdv IVPUSH 04/16/21 20:42 30 mg ONETIME ONE Administration Ketorolac Tromethamine 30 mg 04/17/21 02:02 04/17/21 02:11 Ketorolac 30 Mg/Ml Sdv IVPUSH 04/17/21 02:03 30 mg ONETIME ONE Administration Morphine Sulfate 4 mg 04/16/21 20:42 04/16/21 21:17 Morphine 4 Mg/Ml Vial IVPUSH 04/16/21 20:43 Not Given ONETIME ONE Ondansetron HCl 4 mg 04/16/21 20:43 04/16/21 21:16 Ondansetron 4 Mg/2 Ml Sdv IVPUSH 04/16/21 20:44 4 mg ONETIME ONE Administration Sepsis Event Note (ED) - Evaluation Sepsis Screening Result: No Definite Risk
--- NOTE | 2021-04-16 22:11 | CT ---
HISTORY: Chest pain. History of breast cancer. TECHNIQUE: Intravenous contrast enhanced CT of the chest. 100 mL of Isovue-370 intravenous contrast administered. COMPARISON: No prior. FINDINGS: There is a portion of a catheter which extends from the main pulmonary artery into the left pulmonary artery and ultimately into a left lower lobe pulmonary arterial branch. There is no acute pulmonary embolism. No thoracic aortic aneurysm or dissection. No significant pericardial effusion. Cardiac size is prominent. Prevascular lymph node on image 67 measures 9 mm. Small nonspecific left axillary lymph nodes. - Small left pleural effusion. There are areas of atelectasis within the lungs bilaterally with greatest involvement of the lower lobes. No pneumothorax. - Postsurgical changes of prior right mastectomy. Mild infiltration of the soft tissues of the right chest wall may reflect postsurgical change. - Mild degenerative changes of the spine. IMPRESSION: 1. No acute pulmonary embolism. 2. There appears to be a portion of a catheter/catheter fragment within the main pulmonary artery extending into the left pulmonary artery and subsequently into the left upper lobe. 3. Areas of atelectasis within both lungs. Trace left pleural effusion. 4. Changes of prior right-sided mastectomy. Please note that all CT scans at this facility use dose modulation, iterative reconstruction, and/or weight-based dosing when appropriate to reduce radiation dose to as low as reasonably achievable. Dictated by Frank Arzate MD @ 04/16/2021 10:08:57 PM (Electronically Signed)
[2021-04-16 22:54] LABS: CORONAVIRUS COVID-19 NAA NEGATIVE (NEGATIVE); INFLUENZA A NAA NEGATIVE (NEGATIVE); INFLUENZA B NAA NEGATIVE (NEGATIVE)
--- NOTE | 2021-04-16 23:21 | PCM.EKG ---
#1 Interpretation EKG Date: 04/16/21 Time: 20:08 EKG Interpretation Comments: EKG: As interpreted by ER physician: Jeet: Nonspecific ST-T wave abnormalities Normal axis No evidence of ST elevation NH Normal sinus rhythm heart rate of 79
[2021-04-17] MEDS ORDERED: Ketorolac 30 MG/ML SDV IVPUSH ONE (02:02)
== END 2021-04-17 05:06 ==
LOC: MW.ED 19:58
DX: S25.4 Injury of pulmonary blood vessels (principal); I26.99 Other pulmonary embolism without acute cor pulmonale; Z79.899 Other long term (current) drug therapy; Z20.822 Contact with and (suspected) exposure to COVID-19
CPT/HCPCS: 0240U; 36415; 71275; 80053; 83690; 84484; 84703; 85025; 93005; 96374; 96375; 96376; 99285; J1885; J2405; Q9967